=== PATIENT | female | born 1960 | race Caucasian/White ===

== ENCOUNTER 2019-12-22 16:20 | Outpatient (REF) | payer OTHER, SELFPAY | END 2019-12-22 16:21 | disposition home or self-care (01) | LOC: HO.LAB 16:20 | PROVIDERS: PCP Internal Medicine; Visit Provider Internal Medicine | DX: Z20.828 Contact with and (suspected) exposure to other viral communicable diseases (principal) | CPT/HCPCS: 87635 ==

== ENCOUNTER 2024-01-27 09:21 | Outpatient (AMB) | payer OTHER, SELFPAY ==
[2024-01-27 09:21] VITALS: BP 128/78; PULSE 48
--- NOTE | 2024-01-27 09:21 | A.OFFVIS_ITS ---
Vital Signs 01/27/24 09:21 Weight 217 lb 9.54 oz BP 128/78 Blood Pressure Location Rt brachial Position Sitting Pulse 48 L Pulse Source Pulse Oximeter Intake Visit Reasons: RA//RECORDS RECEIVED Intake Note: Patient present today for RA office visit. Sail Finisher Machine Required: No Accompanied by: Self / Same As Patient Allergies Penicillins Adverse Reaction (Unknown, Verified 01/27/24 09:26) skin rashes contrast dye Adverse Reaction (Unknown, Uncoded 01/27/24 09:26) Vomiting, severe headache mushrooms Adverse Reaction (Unknown, Uncoded 01/27/24 09:26) Diarrhea Medication List - Last Reconciled 01/27/24 by Hong Pacheco MD acetaminophen 1,000 mg PO Q6H PRN albuterol sulfate 90 mcg/actuation 1 inh inhalation QID amlodipine 10 mg PO DAILY cevimeline (Evoxac) 1 cap PO TID cholecalciferol (vitamin D3) 50 mcg PO DAILY diclofenac sodium 75 mg PO BID diphenhydramine HCl 50 mg IM Q6-8H PRN estradiol 0.01%(0.1mg/gram) 1 g vaginal QWEEK fluticasone furoate 100 mcg/actuation (Arnuity Ellipta) 1 inh inhalation DAILY hydrochlorothiazide 25 mg PO DAILY hydroxyzine pamoate 25 mg PO QID lorazepam 2 mg IV Q8M meclizine 12.5 mg PO TID PRN mirtazapine 15 mg PO BEDTIME omeprazole 20 mg PO DAILY ondansetron HCl 4 mg PO Q8H prednisolone acetate 1% 1 drp ophthalmic (eye) BID sumatriptan succinate 50 mg PO Q2-4H PRN valacyclovir 1,000 mg PO DAILY HPI Comments Details: Feels well. Denies any infections. She uses diclofenac 75mg PRN pain. Persistent synovitis right MCPs but no pain. [facility] Medical History (Updated 01/28/24 @ 14:06 by Hnog Pacheco MD) Sjogren syndrome Shoulder impingement Rheumatoid arthritis Marginal zone B-cell lymphoma Encounter for long-term current use of medication Carpal tunnel syndrome Bursitis, trochanteric Arthralgia of shoulder region Family History Mother Lung cancer Rheumatoid arthritis Father Heart disease Social History Alcohol intake: never Patient Tobacco Use Status: Never used Tobacco Review of Systems Const All systems reviewed & are unremarkable except as noted in HPI and below Physical Exam Vital Signs: Last Vital Signs Pulse 48 L 01/27/24 09:21 BP 128/78 01/27/24 09:21 Const General: healthy appearing and comfortable Resp Auscultation: clear to auscultation bilaterally Cardio Rate: regular rate Rhythm: regular rhythm Heart sounds: S1 normal heart sound present and S2 normal heart sound present Extrem Other: Chronic synovial thickening right 2-5th MCP. Non tender joints. She is able to make a fist. Good ROM UE. Knee flexion 100 degrees bilateral. Limited hip ROM. Assessment & Plan Assessment & Plan (1) Rheumatoid arthritis: Comment: Stable on Rituximab infusion (RTX). 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 She tolerated last infusion without infusion reaction. She received methylprednisolone instead of prednisone pretreatment. Hx mild transaminitis on RTX. Discussed having a regular exercise routine. AAOS knee strengthening program given to patient. Continue diclofenac 75mg BID RTC May 2024 Code(s): M06.9 - Rheumatoid arthritis, unspecified Category: Medical Plan: Continue RTX 500mg day 1 and 2 then day 14 and 15 infused over 5 hours with pretreatment 30 minutes before infusion (methyprednisolone, tylenol 650mg, 25mg benedryl IV, 1mg ativan IV) every 5 months. Labs for disease and drug monitoring due today (2) Other intermission coordinator (current) drug therapy: Comment: See above Code(s): Z79.899 - Other shelter (current) drug therapy Category: Medical Plan: See above (3) Sjogren syndrome: Comment: +SSA, NATALY 1:640, dry mouth is tolerable. Code(s): M35.00 - Sjogren syndrome, unspecified Category: Medical Plan: Monitor clinically Plan . Orders: Orders Alanine Aminotransferase 01/27/24 M06.9 - Rheumatoid arthritis, unspecified Aspartate Amino Transferase 01/27/24 M06.9 - Rheumatoid arthritis, unspecified C Reactive Protein 01/27/24 M06.9 - Rheumatoid arthritis, unspecified Creatinine 01/27/24 M06.9 - Rheumatoid arthritis, unspecified Erythrocyte Sedimentation Rate 01/27/24 M06.9 - Rheumatoid arthritis, unspecified T Spot TB 01/27/24 M06.9 - Rheumatoid arthritis, unspecified Complete Blood Count Auto Diff 01/27/24 M06.9 - Rheumatoid arthritis, unspecified Hepatitis B,C Profile 01/27/24 M06.9 - Rheumatoid arthritis, unspecified Medications: New diclofenac sodium 75 mg PO BID 60 tabs 2RF Coding Level of Care Code Est Pt Level 4 (37419) Complex EM visit Add On G2211 Diagnoses Rheumatoid arthritis M06.9 Other intermission coordinator (current) drug therapy Z79.899 Sjogren syndrome M35.00
== END 2024-01-27 10:05 | disposition home or self-care (01) ==
PROVIDERS: PCP Internal Medicine; Visit Provider Internal Medicine Rheumatology
DX: M06.9 Rheumatoid arthritis, unspecified (principal); Z79.899 Other long term (current) drug therapy; M35.00 Sjogren syndrome, unspecified
CPT/HCPCS: 99214; G2211

== ENCOUNTER → 2024-01-27 09:21 | Outpatient (BNVA) | payer OTHER, SELFPAY | PROVIDERS: PCP Internal Medicine; Visit Provider Internal Medicine Rheumatology | DX: M06.9 Rheumatoid arthritis, unspecified (principal); M65.98 Unspecified synovitis and tenosynovitis, other site; M35.00 Sjogren syndrome, unspecified; Z79.899 Other long term (current) drug therapy | CPT/HCPCS: 99212 ==

== ENCOUNTER 2024-01-27 10:27 | Outpatient (REF) | payer OTHER, SELFPAY ==
[2024-01-27 13:35] LABS: MANUAL DIFF FLAG NO
[2024-01-27 13:45] LABS: Basophils Percent Auto 0.4 % (0-2); Eosinophils Absolute Auto 0.2 X10*3/uL (0.0-0.4); Eosinophils Percent Auto 2.5 % (0-4); Hematocrit 42.3 % (37.0-47.0); Hemoglobin 14.1 g/dl (12.0-16.0); Imm Gran Abs Auto 0.01 X10*3/uL (0.00-0.03); Imm Gran Pct Auto 0.1 % (0.0-0.4); Lymphocytes Absolute Auto 1.7 X10*3/uL (1.2-4.9); Lymphocytes Percent Auto 25.1 % (20-40); Mean Corpuscular HGB Conc 33.3 g/dl (31.0-35.0); Mean Corpuscular Hemoglobin 31.8 pg (27.0-33.0); Mean Corpuscular Volume 95.3 fL (80.0-98.0); Mean Platelet Volume 10.7 fL (9.4-12.3); Monocytes Absolute Auto 0.5 X10*3/uL (0.1-1.2); Monocytes Percent Auto 6.6 % (2-11); Neutrophils Absolute Auto 4.5 x10*3/uL (2.0-8.3); Neutrophils Percent Auto 65.3 % (45-73); Platelet Count 257 X10*3/uL (160-400); Red Blood Count 4.44 X10*6/uL (4.20-5.50); Red Cell Distribution Width 11.7 % (11.0-16.0); White Blood Count 6.8 X10*3/uL (4.8-10.8)
[2024-01-27 13:57] LABS: Alanine Aminotransferase 90 U/L (0-31); Aspartate Amino Transferase 79 U/L (5-31); Estimated Glomerular Filt Rate > 60
[2024-01-27 14:16] LABS: Erythrocyte Sedimentation Rate 8 MM/HR (0-20)
[2024-01-28 08:14] LABS: HBS Num1 0.52 mIU/mL (0-7.99); HBc Num1 0.18 S/CO (0.00-0.79); HBsAGNum1 0.39 S/CO (0.00-0.99); Hepatitis B Core Antibody Nonreactive (Nonreactive); Hepatitis B Surface Antigen Negative (Negative); ~HepC Num1 0.08 S/CO (0.00-0.79); ~Hepatitis B Surface Antibody NONREACTIVE (Nonreactive); ~Hepatitis C Antibody Nonreactive (Nonreactive)
[2024-01-30 04:43] LABS: TS Negative Control Passed; TS Panel A 2; TS Panel B 3; TS Positive Control Passed; TSpotTB Negative (Negative)
== END 2024-01-27 10:28 | disposition home or self-care (01) ==
LOC: HO.10HDL 10:27
PROVIDERS: Visit Provider Internal Medicine Rheumatology
DX: M06.9 Rheumatoid arthritis, unspecified (principal)
CPT/HCPCS: 36415; 82565; 84450; 84460; 85025; 85652; 86140; 86481; 86704; 86706; 86803; 87340

== ENCOUNTER 2024-02-29 09:05 | Outpatient (REF) | payer OTHER, SELFPAY ==
[2024-02-29 11:10] LABS: Alanine Aminotransferase 75 U/L (0-31); Albumin Level 3.8 g/dL (3.5-5.0); Alkaline Phosphatase 96 U/L (39-117); Aspartate Amino Transferase 50 U/L (5-31); Bilirubin Direct 0.2 mg/dL (0.0-0.5); Bilirubin Total 0.7 mg/dL (0.0-1.0); Total Protein 6.9 g/dL (6.5-8.0)
== END 2024-02-29 09:06 | disposition home or self-care (01) ==
LOC: HO.10HDL 09:05
PROVIDERS: Visit Provider Internal Medicine Rheumatology
DX: R74.01 Elevation of levels of liver transaminase levels (principal); Z79.899 Other long term (current) drug therapy
CPT/HCPCS: 36415; 80076

== ENCOUNTER 2024-04-11 08:45 | Outpatient (REF) | payer OTHER, SELFPAY ==
--- NOTE | ~2024-04-11 | US_ITS ---
CLINICAL HISTORY: R74.01 - Elevation of levels of liver transaminase levels US abdomen limited Comparison: None Findings: Fatty infiltration of the liver without focal abnormality. Visualized pancreas unremarkable. Gallbladder unremarkable without stones or wall thickening. Common duct 7.4 mm diameter. No ultrasonographic [place] sign. Right kidney normal, 10.2 cm in length. Impression: Fatty infiltration of the liver Dilated common bile duct without other finding This document has been electronically signed by: Manfred Archuleta MD on 04/11/2024 19:24:15
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
== END 2024-04-11 08:46 | disposition home or self-care (01) ==
LOC: HO.HMGCX 08:45
PROVIDERS: PCP Internal Medicine; Visit Provider Internal Medicine Rheumatology
DX: R74.01 Elevation of levels of liver transaminase levels (principal)
CPT/HCPCS: 76705

== ENCOUNTER → 2024-04-11 08:47 | Outpatient (BNV) | payer OTHER, SELFPAY | PROVIDERS: PCP Internal Medicine; Visit Provider Radiology Diagnostic Radiology | DX: K76.0 Fatty (change of) liver, not elsewhere classified (principal) | CPT/HCPCS: 76705 ==

== ENCOUNTER 2024-06-13 13:31 | Outpatient (AMB) | payer OTHER, SELFPAY ==
--- NOTE | 2024-06-13 13:33 | MHC.OFFVIS ---
Vital Signs 06/13/24 13:34 Height 5 ft 3 in Weight 204 lb 12.951 oz BMI 36.3 BP 140/80 H Blood Pressure Location Lt brachial Position Sitting Pulse 113 H Pulse Source Pulse Oximeter Pulse Oximetry (%) 97 Oxygen Delivery Method Room Air Intake Visit Reasons: 4mo F/U Intake Note: Patient present today for RA office visit. Allergies Penicillins Adverse Reaction (Unknown, Verified 06/13/24 13:36) skin rashes contrast dye Adverse Reaction (Unknown, Uncoded 06/13/24 13:36) Vomiting, severe headache mushrooms Adverse Reaction (Unknown, Uncoded 06/13/24 13:36) Diarrhea HPI HPI 4mo F/U: Details: She was recently in the ER for asthma exacerbation. She completed 4 day course of prednisone. She noticed that the swelling in her right hand has decreased. No new joint symptoms. No recent infections. [facility] Medical History (Updated 06/13/24 @ 14:07 by Hong Pacheco MD) Sjogren syndrome Shoulder impingement Rheumatoid arthritis Marginal zone B-cell lymphoma Encounter for long-term current use of medication Carpal tunnel syndrome Bursitis, trochanteric Arthralgia of shoulder region Family History Mother Lung cancer Rheumatoid arthritis Father Heart disease Social History Alcohol intake: never Patient Tobacco Use Status: Never used Tobacco Physical Exam Vital Signs: Last Vital Signs Pulse 113 H 06/13/24 13:34 BP 140/80 H 06/13/24 13:34 Pulse Ox 97 06/13/24 13:34 Oxygen Delivery Method Room Air 06/13/24 13:34 BMI result Body Mass Index 36.3 Const Other: General: Comfortable CVS: RRR Respiratory: clear to auscultation bilaterally. Good respiratory effort Skin: No lesions seen MSK:Chronic synovial thickening right 2-5th MCP. Non tender joints. She is able to make a fist. Normal ROM UE. Knee flexion 110 degrees bilateral. Limited hip external rotation. Cardio Rate: regular rate Rhythm: regular rhythm Heart sounds: S1 normal heart sound present and S2 normal heart sound present Assessment & Plan Assessment & Plan (1) Rheumatoid arthritis: Comment: She has chronic synovial thickening of right 2nd and 3rd MCP. I am ordering x-ray to evaluate for erosive arthritis. She had benefit with recent course of prednisone in reducing synovitis. We discussed considering another course of prednisone versus intra-articular cortisone injections next visit. Rheumatology history: Stable on Rituximab infusion (RTX). 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 She tolerated last infusion without infusion reaction. She received methylprednisolone instead of prednisone pretreatment. Hx mild transaminitis on RTX. Hepatic steatosis on ultrasound 04/11/2024. Code(s): M06.9 - Rheumatoid arthritis, unspecified Category: Medical Plan: Continue RTX 500mg day 1 and 2 then day 14 and 15 infused over 5 hours with pretreatment 30 minutes before infusion (methyprednisolone, tylenol 650mg, 25mg benedryl IV, 1mg ativan IV) every 5 months. Labs for disease and drug monitoring due today Return to clinic in 3 months (2) Hepatic steatosis: Comment: Discussed diagnosis and management Code(s): K76.0 - Fatty (change of) liver, not elsewhere classified Category: Medical Plan: I recommend healthy eating and exercise. I recommend trying to lose weight. She will further discuss considering medications for weight loss with PCP Return to clinic in 3 months (3) Other continuous churn buttermaker (current) drug therapy: Code(s): Z79.899 - Other continuous churn buttermaker (current) drug therapy Category: Medical Plan: See above (4) Sjogren syndrome: Comment: +SSA, NATALY 1:640, dry mouth is tolerable. Code(s): M35.00 - Sjogren syndrome, unspecified Category: Medical Plan: Monitor clinically Plan See above Orders: Orders Alanine Aminotransferase Today Z79.60 - senior care (current) use of unspecified immunomodulators and immunosuppressants XR hand RT min 3V Today M06.9 - Rheumatoid arthritis, unspecified Complete Blood Count Auto Diff Today Z79.60 - vermin exterminator (current) use of unspecified immunomodulators and immunosuppressants Aspartate Amino Transferase Today Z79.60 - vermin exterminator (current) use of unspecified immunomodulators and immunosuppressants Creatinine Today Z79.60 - senior care (current) use of unspecified immunomodulators and immunosuppressants C Reactive Protein Today Z79.899 - Other penitentiary (current) drug therapy Erythrocyte Sedimentation Rate Today Z79.899 - Other continuous churn buttermaker (current) drug therapy XR hand LT min 3V Today M06.9 - Rheumatoid arthritis, unspecified Coding Level of Care Code Est Pt Level 4 (70435) Complex EM visit Add On G2211 Diagnoses Rheumatoid arthritis M06.9 Hepatic steatosis K76.0 Other penitentiary (current) drug therapy Z79.899 Sjogren syndrome M35.00
[2024-06-13 13:34] VITALS: BP 140/80; PULSE 113; O2SAT 97; BMI 36.3
--- OUTSIDE RECORDS SUMMARY | 2024-06-13 16:01 | XMS_ITS | Encounter Summary ---
Author Organization [facility] Address [address] [place] [address] Care Team Providers Care Bucket Turner Name Role Phone Laurie Landon MD Primary Care Provider [phone] Reason for Visit * Reason Comments Hypertension Follow-up Shortness of Breath X 1 day Chest Pain X 1 day Encounter Details Date Type Department Care Team ([facility] Contact Info) Description 06/08/2024 1:00 PM EDT Office Visit Adult Medicine [facility] [address], [place] [phone] Joseline Plascencia PA [address], [place] Chest pain, unspecified type (Primary Dx); Shortness of breath Social History Tobacco Use Types Packs/Day Years Used Date Smoking Tobacco: Never Smokeless Tobacco: Never Alcohol Use Standard Drinks/Week Comments Not Currently 0 (1 standard drink = 0.6 oz pur e alcohol) Comments Unknown Sex and Gender Information Value Date Recorded Sex Assigned at Not on file Legal Sex Female 5:36 AM EST Gender Identity Not on file Sexual Orientation Not on file documented as of this encounter Last Filed Vital Signs Vital Sign Reading Time Taken Comments Blood Pressure 138/80 06/08/2024 1:13 PM EDT Pulse 62 06/08/2024 1:13 PM EDT Temperature 36.3 ??C (97.4 ??F) 06/08/2024 1:13 PM ED T Respiratory Rate 16 06/08/2024 1:13 PM EDT Oxygen Saturation 98% 06/08/2024 1:13 PM EDT Inhaled Oxygen Concentration - - Weight 94.3 kg (208 lb) 06/08/2024 1:13 PM EDT Height 160 cm (5' 3 ) 06/08/2024 1:13 PM EDT Body Mass Index 36.85 06/08/2024 1:13 PM EDT documented in this encounter Progress Notes * DIEGO Lew - 06/08/2024 1:00 PM EDT CHIEF COMPLAINT: Hypertension, Follow-up, Shortness of Breath (X 1 day), and Chest Pain (X 1 day ) IDENTIFIER: Florence Blanco is a 64 y.o. old female. HPI: 64-year-old female presenting to office for routine evaluation. Upon arrival to the office, she reports she developed chest pain radiating to the back and shortness of breath this morning which has been persistent and worsening. Reports generally feeling ill. Reports ongoing stress, states she was in court yesterday regarding of her granddaughter. ROS: GENERAL: No fever, shaking chills RESPIRATORY: +shortness of breath CARDIOVASCULAR: +chest pain NEURO: No persistent headache, syncope, seizures PAST MEDICAL HISTORY: Patient Active Problem List Diagnosis Date Noted Asthma 02/15/2024 Severe obesity (BMI 35.0-35.9 with comorbidity) ([facility]) CKD (chronic kidney disease) stage 3, GFR 30-59 ml/min ([facility]) 05/21/2023 Migraine headache with aura 08/02/2020 Paresthesia of both lower extremities 05/31/2018 HSV-2 (herpes simplex virus 2) infection 05/12/2018 Steatohepatitis, nonalcoholic 01/05/2017 Seropositive rheumatoid arthritis of multiple sites ([facility]) 01/01/2016 Ureterolithiasis 05/18/2015 Vitamin D deficiency 12/31/2014 Post herpetic neuralgia 12/25/2013 HPV (human papilloma virus) infection 05/25/2013 Hypertensive disorder 12/28/2011 Sjogren's syndrome ([facility]) 01/30/2011 Depression 12/25/2009 Degeneration of lumbar intervertebral disc 05/03/2009 Thyroid nodule 08/29/2007 Rotator cuff tear 08/29/2007 Reflux esophagitis 03/01/2007 Malignant lymphomas of lymph nodes of multiple sites ([facility]) 09/30/2006 Hypothyroidism 06/30/2006 Leiomyoma of uterus 06/30/2006 Past Surgical History: Procedure Laterality Date BREAST BIOPSY Bilateral PROCEDURE: BX BREAST; PERC NEEDLE CORE W/IMAG GUID; COMMENT: both bx b9 BREAST LUMPECTOMY 04/16 PROCEDURE: ---- BREAST LUMP BIOPSY ----; COMMENT: fibroadenoma BREAST SURGERY Bilateral PROCEDURE: MS UNLISTED PROCEDURE BREAST HYSTERECTOMY 2007 PROCEDURE: HISTORICAL HYSTERECTOMY; COMMENT: Dr. Davila, fibroids, ovaries intact OTHER SURGICAL HISTORY PROCEDURE: MS HEMORRHOIDECTOMY XTRNL COLUMN/GROUP OTHER SURGICAL HISTORY 11/2017 PROCEDURE: MAMMOGRAM OTHER SURGICAL HISTORY PROCEDURE: MS RADIAL KERATOTOMY; COMMENT: left eye TUBAL LIGATION PROCEDURE: HISTORICAL TUBAL LIGATION SOCIAL HISTORY: Social History Tobacco Use Smoking status: Never Smokeless tobacco: Never Substance Use Topics Alcohol use: Not Currently FAMILY HISTORY: Family History Problem Relation Name Age of Onset Prostate cancer Other 55.00 maternal uncle and first cousin Hypertension Mother arthritis, lung cancer, liver disease, diabetes Heart attack Father 61.00 HTN Ovarian cancer Maternal Grandmother 60.00 Lymphoma Uncle maternal Dementia Maternal Grandfather 92.00 Cervical cancer Daughter 22.00 lupus Stroke Paternal Grandfather 65.00 Other (Other: bone cancer) Other 5.00 paternal second cousin Other (Other: lupus) Other 32.00 paternal first cousin once removed Lymphoma Uncle 70.00 maternal Other (Other: rectal cancer) Other 35.00 maternal first cousin Other (Other: ovarian cancer) Other 40.00 maternal first cousin Breast cancer Aunt maternal 70.00 unilateral Family Status Relation Name Status Other Alive Mother Alive Father MGM Uncle (Not Specified) MGF Daughter (Not Specified) PGF Other (Not Specified) Other (Not Specified) Uncle (Not Specified) Other (Not Specified) Other (Not Specified) Aunt maternal Alive PGM No partnership data on file MEDICATIONS DISCONTINUED/REORDERED: Medications Discontinued During This Encounter Medication Reason cycloSPORINE 0.05 % drops Duplicate order diclofenac (VOLTAREN) 75 mg EC tablet Duplicate order ACTIVE MEDICATIONS: Outpatient Medications Marked as Taking for the 06/08/24 encounter (Office Visit) with DIEGO Lew Medication Sig Dispense Refill albuterol 2.5 mg /3 mL (0.083 %) nebulizer solution Take 1 Vial by nebulization every 4 hours as needed for Wheezing or Shortness of Breath (EMERGENCY INHALER). albuterol sulfate (ProAir RespiClick) 90 mcg/actuation aerosol powdr breath activated Inhale 2 Puffs into the lungs every 6 hours as needed (Coughing, wheezing, shortness of breath). budesonide-formoteroL (SYMBICORT) 160-4.5 mcg/actuation inhaler Inhale 1 Puff into the lungs 2 times daily. cholecalciferol (VITAMIN D-3) 50 mcg (2,000 unit) capsule TAKE 1 CAPSULE BY MOUTH EVERY DAY diclofenac (CATAFLAM) 50 mg tablet TAKE 1 TABLET ORALLY 2 TIMES A DAY REPLACE DICLOFENAC 75MG TWICEA DAY. TAKE WITH FOOD. estradioL (ESTRACE) 0.01 % (0.1 mg/gram) vaginal cream Insert 0.5 g into the vagina 2 (two) times aweek. 45 g 1 ferrous sulfate 325 mg (65 mg iron) EC tablet Take by mouth. qod lisinopriL (PRINIVIL,ZESTRIL) 10 mg tablet Take 1 Tablet by mouth daily. omeprazole (PriLOSEC) [address] capsule TAKE 1 CAPSULE BY MOUTH ONCE A DAY WHILE YOU ARE ON DICLOFENAC OR PREDNISONE TO PROTECT YOUR STOMACH 90 capsule 3 Restasis 0.05 % ophthalmic emulsion Administer 1 drop into both eyes 2 (two) times a day. SUMAtriptan (IMITREX) 50 mg tablet TAKE 1 TABLET BY MOUTH DAILY NEEDED FOR MIGRAINE (MAY REPEAT ONCE WITHIN 2 HRS (MAX: 100MG PER 24 HRS)). 9 tablet 2 triamcinolone (KENALOG) 0.025 % cream APPLY SPARINGLY TO AFFECTED AREA TWICE DAILY valACYclovir (VALTREX) 1 gram tablet Take 1 tablet (1,000 mg total) by mouth 1 (one) time each day. ALLERGIES: Allergies Allergen Reactions Hydroxychloroquine Sulfate Abnormal eye exam after being on it for a year Penicillins Other Reaction(s): Rash/Dermatitis Iodinated Contrast Media Other Reaction(s): Hives/Urticaria Pt had vomiting and rash UNSPECIFIED Contrast Media - PHS Allergy Remediation PHYSICAL EXAM: Visit Vitals BP 138/80 Pulse 62 Temp 36.3 ??C (97.4 ??F) (Temporal) Resp 16 Ht 1.6 m (63 ) Wt 94.3 kg (208 lb) SpO2 98% BMI 36.85 kg/m?? Smoking Status Never BSA 1.97 m?? Wt Readings from Last 5 Encounters: 06/08/24 94.3 kg (208 lb) 04/25/24 97.3 kg (214 lb 6.4 oz) 12/07/23 97.7 kg (215 lb 8 oz) 08/06/23 95.7 kg (211 lb) 05/20/23 94.8 kg (209 lb) BMI is greater than 25.0 (above the normal range) - see Plan APPEARANCE: Alert, severely obese, and in no acute distress HEART: RRR with normal S1 and S2, no murmurs, no gallops CHEST: Diffuse chest wall tenderness to palpation LUNG: Bilateral lung taylor clear to auscultation throughout EKG: Sinus bradycardia, rate 57, no suggestion of ischemia. Similar when compared to EKG dated 08/26/07. Reviewed with Dr. Landon. LABS: No orders of the defined types were placed in this encounter. IMAGING: None IMPRESSION: 1. Chest pain, unspecified type 2. Shortness of breath PLAN: 64-year-old female who reports developing sudden onset chest pain, radiating to the back, along with shortness of breath this morning which is persisted and seems to be worsening. EKG is performed and reviewed without ischemic change. However, given risk factors including hypertension, severe obesity, and family history of cardiovascular disease - patient referred to ER for further ACS protocol. Report baby aspirin to be chewed and swallowed in the presence of the nurse; cardiac monitoring established. 911 is called, patient wishes to be evaluated at [facility]. Medication and lab orders: No orders of the defined types were placed in this encounter. Other orders: None DIEGO Lew on 06/08/2024 at 1:39 PM EDT * Karla Membreno RN - 06/08/2024 1:00 PM EDT Pt received in exam room # 7. Pt able to ambulate from the exam room to the holding unit independently. She was administered 4 baby ASA at 1:35 pm and was instructed to chew them then swallow. She states she cannot talk as she is too short of breath. Pt hooked up to the youth nutritional monitor and vital cart in the holding unit. 911 called at 1:40 pm. Her VS as of 1:43 pm are as follows: 155/72, 63, 100% RA and 32. She states her inhaler is in her car. Paramedics arrived to the holding uni at 1:49 pm and transported pt to [facility] ER. documented in this encounter Plan of Treatment Upcoming Encounters Date Type Department Care Team (Late st Contact Info) Description 10/12/2024 2:10 PM EDT Appointment Radiology Department - [address] [phone] documented as of this encounter Visit Diagnoses Diagnosis Chest pain, unspecified type- Primary Shortness of breath documented in this encounter Discontinued Medications Medication Sig Discontinue Reason Start Date End Da te cycloSPORINE 0.05 % drops Place 1 Drop into both eyes 2 times daily. Duplicate order 03/06/2015 06/08/2024 diclofenac (VOLTAREN) 75 mg EC tablet TAKE 1 TABLET BY MOUTH TWICE A DAY WITH FOOD Duplicate order 05/07/2022 06/08/2024 documented as of this encounter Historical Medications * This list may reflect changes made after this encounter. Restasis 0.05 % ophthalmic emulsion Administer 1 drop into both eyes 2 (two) times a day. 04/29/2024 diclofenac (CATAFLAM) 50 mg tablet TAKE 1 TABLET ORALLY 2 TIMES A DAY REPLACE DICLOFENAC 75MG TWICE A DAY. TAKE WITH FOOD. 05/10/2024 valACYclovir (VALTREX) 1 gram tablet Take 1 tablet (1,000 mg total) by mouth 1 (one) time each day. 04/21/2024 added in this encounter Care Teams Bucket Turner Relationship Specialty Start Date End Date Laurie Landon MD [address] [place] [address] PCP - General 07/28/02 documented as of this encounter
--- OUTSIDE RECORDS SUMMARY | 2024-06-13 16:01 | XMS_ITS | Encounter Summary ---
Author Organization [facility] Address [address] [place] [address] Care Team Providers Care Estimate Clerk Name Role Phone Laurie Landon MD Primary Care Provider [phone] Encounter Details Date Type Department Care Team (Late Contact Info) Description 06/08/2024 Telephone Adult Medicine [address] [phone] Karla Membreno RN Social History Tobacco Use Types Packs/Day Years [...] on file documented as of this encounter Plan of Treatment Upcoming Encounters Date Type Department Care Team (Late Contact Info) Description 10/12/2024 2:10 PM EDT Appointment Radiology Department - [address] [phone] documented as of this encounter Visit Diagnoses Not on filedocumented in this encounter Care Teams Estimate Clerk Relationship Specialty Start Date End Date Laurie Landon MD [address] [place] [address] PCP - General 07/28/02 documented as of this encounter
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
== END 2024-06-13 14:02 | disposition home or self-care (01) ==
LOC: HO.RHES 13:32
PROVIDERS: PCP Internal Medicine; Visit Provider Internal Medicine Rheumatology
DX: M06.9 Rheumatoid arthritis, unspecified (principal); K76.0 Fatty (change of) liver, not elsewhere classified; Z79.899 Other long term (current) drug therapy; M35.00 Sjogren syndrome, unspecified
CPT/HCPCS: 99214; G2211

== ENCOUNTER 2024-06-13 13:31 | Outpatient (REF) | payer OTHER, SELFPAY ==
--- OUTSIDE RECORDS SUMMARY | 2024-06-13 16:50 | XMS_ITS | Encounter Summary ---
Author Organization [facility] Address [address] [place] [address] Care Team Providers Care Emergency Medicine Physician Name Role Phone Laurie Landon MD Primary Care Provider [phone] Reason for Visit * Reason Comments Hypertension Follow-up Shortness of Breath X 1 day Chest Pain X 1 day Encounter Details Date Type Department Care Team ([facility] Contact Info) Description 06/08/2024 1:00 PM EDT Office Visit Adult Medicine [facility] [address] [place], [place] [phone] Joseline Plascencia PA [address] [place], [place] Chest pain, unspecified type (Primary Dx); [...] 02/15/2024 Severe obesity (BMI 35.0-35.9 with comorbidity) ([facility]) CKD (chronic kidney disease) stage 3, GFR 30-59 ml/min ([facility]) 05/21/2023 Migraine headache with aura 08/02/2020 Paresthesia of both lower extremities 05/31/2018 HSV-2 (herpes simplex virus 2) infection 05/12/2018 Steatohepatitis, nonalcoholic 01/05/2017 Seropositive rheumatoid arthritis of multiple sites ([facility]) 01/01/2016 Ureterolithiasis 05/18/2015 Vitamin D deficiency 12/31/2014 Post herpetic neuralgia 12/25/2013 HPV (human papilloma virus) infection 05/25/2013 Hypertensive disorder 12/28/2011 Sjogren's syndrome ([facility]) 01/30/2011 Depression 12/25/2009 Degeneration of lumbar intervertebral disc 05/03/2009 Thyroid nodule 08/29/2007 Rotator cuff tear 08/29/2007 Reflux esophagitis 03/01/2007 Malignant lymphomas of lymph nodes of multiple sites ([facility]) 09/30/2006 Hypothyroidism 06/30/2006 Leiomyoma of uterus 06/30/2006 Past Surgical History: Procedure Laterality Date BREAST BIOPSY Bilateral PROCEDURE: BX BREAST; PERC NEEDLE CORE W/IMAG GUID; COMMENT: both bx b9 BREAST LUMPECTOMY 04/16 PROCEDURE: ---- BREAST LUMP BIOPSY ----; COMMENT: fibroadenoma BREAST SURGERY Bilateral PROCEDURE: [place] UNLISTED PROCEDURE BREAST HYSTERECTOMY 2007 PROCEDURE: HISTORICAL HYSTERECTOMY; COMMENT: Dr. Davila, fibroids, ovaries intact OTHER SURGICAL HISTORY PROCEDURE: [place] HEMORRHOIDECTOMY XTRNL COLUMN/GROUP OTHER SURGICAL HISTORY 11/2017 PROCEDURE: MAMMOGRAM OTHER SURGICAL HISTORY PROCEDURE: [place] RADIAL KERATOTOMY; COMMENT: left eye TUBAL LIGATION [...] called, patient wishes to be evaluated at [facility]. Medication and lab orders: No orders [...] of breath. Pt hooked up to the case monitor and vital cart in the holding unit. 911 called at 1:40 pm. Her VS as of 1:43 pm are as follows: 155/72, 63, 100% RA and 32. She states her inhaler is in her car. Paramedics arrived to the holding uni at 1:49 pm and transported pt to [facility]. documented in this encounter Plan of Treatment Upcoming Encounters Date Type Department Care Team (Late st Contact Info) Description 10/12/2024 2:10 PM EDT Appointment Radiology Department - [address] [phone] documented as of this encounter Visit Diagnoses [...] 04/21/2024 added in this encounter Care Teams Emergency Medicine Physician Relationship Specialty Start Date End Date Laurie Landon MD [address] [place] [address] PCP - General 07/28/02 documented as of this encounter
--- OUTSIDE RECORDS SUMMARY | 2024-06-13 16:51 | XMS_ITS | Encounter Summary ---
Author Organization [facility] Address [address] [place] [address] Care Team Providers Care Generation Technician Name Role Phone Laurie Landon MD Primary Care Provider [phone] Encounter Details Date Type Department Care Team (Late Contact Info) Description 06/08/2024 Telephone Adult Medicine [address] [phone] Karla Membreno RN Social History Tobacco Use [...] 2:10 PM EDT Appointment Radiology Department - [address] [phone] documented as of this encounter Visit Diagnoses Not on filedocumented in this encounter Care Teams Generation Technician Relationship Specialty Start Date End Date Laurie Landon MD [address] [place] [address] PCP - General 07/28/02 documented as of this encounter
--- OUTSIDE RECORDS SUMMARY | 2024-06-13 16:51 | XMS_ITS | Clinical Summary ---
Author Organization [address] Address [address] [place] [phone] Phone Care Team Providers Care Docket Specialist Name Role Phone Laurie Landon MD Primary Care Provider [phone] Allergies Active Allergy Reactions Criticality Noted Date [...] SS-B MALT lymphoma, parotid. Received Rituxamab at [facility]. Hydroxychloroquine stopped after one year - questionable [...] 1:00 PM EDT Office Visit Adult Medicine [address] [phone] Joseline Plascencia PA Chest pain, unspecified type (Primary Dx); Shortness of breath 06/08/2024 Telephone Adult Medicine [address] [phone] Karla Membreno RN 04/28/2024 Telephone Obstetrics and Gynecology [place] [address] [place] [address] Laverne Lilly CNM Labs Only 04/25/2024 8:45 AM EST Office Visit Obstetrics and Gynecology - [place] [address] [place] [address] Laverne Lilly CNM Women's annual routine gynecological examination (Primary Dx); Screen for STD (sexually transmitted disease); Hypertension, unspecified type from Last 3 Months Immunizations Name Administration Dates Next Due H1N1 Inj Preservative Free 02/22/2009 Hepatitis B (Shabvya-X-Dvwcg , Recombivax HB-Adult) 19yo and older 04/07/2017,09/30/2016,09/03/2016 [...] ----; COMMENT: fibroadenoma OTHER SURGICAL HISTORY PROCEDURE: MO HEMORRHOIDECTOMY XTRNL COLUMN/GROUP OTHER SURGICAL HISTORY 11/2017 PROCEDURE: MAMMOGRAM TUBAL LIGATION PROCEDURE: HISTORICAL TUBAL LIGATION OTHER SURGICAL HISTORY PROCEDURE: MO RADIAL KERATOTOMY; COMMENT: left eye HYSTERECTOMY 2007 PROCEDURE: HISTORICAL HYSTERECTOMY; COMMENT: Dr. Davila, fibroids, ovaries intact BREAST BIOPSY Bilateral PROCEDURE: BX BREAST; PERC NEEDLE CORE W/IMAG GUID; COMMENT: both bx b9 BREAST SURGERY Bilateral PROCEDURE: MO UNLISTED PROCEDURE BREAST Medical History Medical History Date Comments Headache(784.0) DX:Headache(784. 0) Asymptomatic varicose veins DX:A symptomatic varicose veins Leiomyoma of uterus, unspecified 06/30/2006 DX:Leiomyoma of uterus, unspecified Texline's syndrome DX:Chai's syndrome (HCC) Other malignant lymphomas [...] 10/12/2024 2:10 PM EDT Appointment Radiology Department [address] [address] Health Maintenance Due Date Last Done Comments [...] LAB MICROBIOLOGY METHOD 05/01/2024 2:04 PM EST [facility] Brushing/Spatula Cervix uteri structure / Unknown 05/01/2024 7:49 AM EST 05/01/2024 7:49 AM EST Laverne BELLA LAB MOLECULAR DIAGNOSTICS O RDERABLES Final Result [facility] [address] [place] [address], * Pap smear (04/25/2024 10:09 AM EST) Interpretation Negative for intraepithelial lesion or malignancy 04/27/2024 2:36 PM EST [facility] General Categorization Negative 04/27/2024 2:36 PM EST [facility] Specimen Adequacy Satisfactory for evaluation, endocervical/wilburn sformation zone component absent 04/27/2024 2:36 PM [facility] Pap Methodology Liquid Based Pap Test 04/27/2024 2:36 PM [facility] Disclaimer The Pap test is a screening test which carries an inherent false negative rate. These test results should be correlated with the patient's clinical findings and history. This Pap test was processed using an automated screening system. Technical cytopathology services provided by [facility], at [address] [place] [id number] (CLIA # [id number]/John Rosales MD, Arc Air Operator.) 04/27/2024 2:36 PM [facility] Console Pap Interpretation Reported 04/27/2024 2:36 PM [facility] Brushing/Spatula Cervix uteri structure / Unknown 04/25/2024 10:09 AM EST 04/25/2024 10:09 AM EST us [facility] CYTOLOGY ORDERABLES Fin al Result [facility] [address] [place] [address], [place] [phone] * Hepatitis C antibody (04/25/2024 9:29 AM EST) Hepatitis C Antibody Negative Negative LAB CHEMISTRY METHOD 04/25/2024 12:43 PM EST [facility] Blood Venous blood specimen / Unknown Venipuncture / Unknown 04/25/2024 9:29 AM EST 04/25/2024 9:29 AM EST us Laverne Lilly [facility] BLOOD ORDERABLES Final Result [facility] [address] [place] [address], [place] [phone] * HIV 1,2 antibody, p24 antigen with reflex to differentiation (04/25/2024 9:29 AM EST) HIV Combo AB/AG Negative Negative LAB CHEMISTRY METHOD 04/25/2024 12:43 PM EST [facility] Blood Venous blood specimen / Unknown Venipuncture / Unknown 04/25/2024 9:29 AM EST 04/25/2024 9:29 AM EST Narrative [facility] - 04/25/2024 12:43 PM EST This assay is a 4th generation assay allowing for earlier detection of HIV infection by detecting the presence of the HIV-1 p24 antigen as well as the traditional antibodies to HIV type 1 (including group O) and type 2. ??Use of a 4th generation assay is the current CDC recommendation for HIV screening. us Laverne Lilly [facility] BLOOD ORDERABLES Final Result Performing Organization Address City/[facility]/ZIP Co de Phone Number [facility] [address] [place] [address], [place] [phone] * Treponema pallidum antibody with reflex to RPR and particle agglutination (04/25/2024 9:29 AM EST) Pathologist [facility] T. Pallidum Antibodies Negative Negative LAB CHEMISTRY METHOD 04/25/2024 12:17 PM EST [facility] Blood Venous blood specimen / Unknown Venipuncture / Unknown 04/25/2024 9:29 AM EST 04/25/2024 9:29 AM EST us Laverne Lilly [facility] BLOOD ORDERABLES Final Result [facility] [address] [place] [address], [place] [phone] * SCREENING MAMMOGRAPHY BI 2-VIEW BREAST INC [...] Final Resul t * Depression Screening (05/20/2023) [facility] Depression Screening abstracted Historical Provider HEALTH MAINTENANCE Final Result * Annual BMP Blood Test (02/18/2023) [facility] Annual BMP Blood Test abstracted Historical Provider HEALTH MAINTENANCE Final Result * FIT-DNA (Cologuard) (11/19/2022) [facility] Colorectal Cancer Screening: FIT-DNA (Cologuard) no [...] Most Recently Relevant to Health Maintenance Insurance [facility] [place] [address] Care Teams Docket Specialist Relationship Specialty Start Date End Date Laurie Landon MD [address] [place] [id number] PCP - General 07/28/02
[2024-06-13 18:13] LABS: MANUAL DIFF FLAG NO
[2024-06-13 18:56] LABS: Alanine Aminotransferase 90 U/L (0-31); Aspartate Amino Transferase 76 U/L (5-31); C Reactive Protein 2.25 mg/dL (< or = 0.50); Estimated Glomerular Filt Rate 56
[2024-06-13 19:02] LABS: Basophils Percent Auto 0.3 % (0-2); Eosinophils Absolute Auto 0.3 X10*3/uL (0.0-0.4); Eosinophils Percent Auto 3.6 % (0-4); Hematocrit 46.2 % (37.0-47.0); Hemoglobin 15.7 g/dl (12.0-16.0); Imm Gran Abs Auto 0.02 X10*3/uL (0.00-0.03); Imm Gran Pct Auto 0.2 % (0.0-0.4); Lymphocytes Absolute Auto 1.9 X10*3/uL (1.2-4.9); Lymphocytes Percent Auto 20.7 % (20-40); Mean Corpuscular Hemoglobin 31.9 pg (27.0-33.0); Mean Corpuscular Volume 93.9 fL (80.0-98.0); Mean Platelet Volume 11.2 fL (9.4-12.3); Monocytes Absolute Auto 0.6 X10*3/uL (0.1-1.2); Monocytes Percent Auto 6.3 % (2-11); Neutrophils Absolute Auto 6.3 x10*3/uL (2.0-8.3); Neutrophils Percent Auto 68.9 % (45-73); Platelet Count 340 X10*3/uL (160-400); Red Blood Count 4.92 X10*6/uL (4.20-5.50); Red Cell Distribution Width 12.1 % (11.0-16.0); White Blood Count 9.2 X10*3/uL (4.8-10.8)
[2024-06-13 19:33] LABS: Erythrocyte Sedimentation Rate 13 MM/HR (0-20)
== END 2024-06-13 13:32 | disposition home or self-care (01) ==
LOC: HO.HKASLDS 13:31
PROVIDERS: PCP Internal Medicine; Visit Provider Internal Medicine Rheumatology
DX: Z79.899 Other long term (current) drug therapy (principal); Z79.60 Long term (current) use of unspecified immunomodulators and immunosuppressants; M06.9 Rheumatoid arthritis, unspecified; M35.00 Sjogren syndrome, unspecified; K76.0 Fatty (change of) liver, not elsewhere classified
CPT/HCPCS: 36415; 82565; 84450; 84460; 85025; 85652; 86140; 99212

== ENCOUNTER 2024-09-26 13:01 | Outpatient (AMB) | payer OTHER, SELFPAY ==
--- NOTE | 2024-09-26 13:04 | MHC.OFFVIS ---
Vital Signs 09/26/24 13:07 Height 5 ft 3 in Weight 208 lb BMI 36.8 BP 130/70 Blood Pressure Location Lt brachial Position Sitting Pulse 95 Pulse Source Pulse Oximeter Pulse Oximetry (%) 98 Oxygen Delivery Method Room Air Intake Visit Reasons: 3 Months Intake Note: Patient present today for RA office visit. Allergies Penicillins Adverse Reaction (Unknown, Verified 09/26/24 13:07) skin rashes contrast dye Adverse Reaction (Unknown, Uncoded 06/13/24 13:36) Vomiting, severe headache mushrooms Adverse Reaction (Unknown, Uncoded 06/13/24 13:36) Diarrhea HPI HPI 3 Months: Details: She is doing well. No recent flares. She continues to have swelling in her right hand. [facility] Medical History (Updated 09/26/24 @ 15:44 by Hong Pacheco MD) Sjogren syndrome Shoulder impingement Rheumatoid arthritis Marginal zone B-cell lymphoma Encounter for long-term current use of medication Carpal tunnel syndrome Bursitis, trochanteric Arthralgia of shoulder region Family History Mother Lung cancer Rheumatoid arthritis Father Heart disease Social History Alcohol intake: never Patient Tobacco Use Status: Never used Tobacco Physical Exam Vital Signs: Last Vital Signs Pulse 95 09/26/24 13:07 BP 130/70 09/26/24 13:07 Pulse Ox 98 09/26/24 13:07 Oxygen Delivery Method Room Air 09/26/24 13:07 BMI result Body Mass Index 36.8 Const Other: General: Comfortable CVS: RRR Respiratory: clear to auscultation bilaterally. Good respiratory effort Skin: No lesions seen MSK:Chronic synovial thickening right 2-3rd MCP. Non tender joints. She is able to make a fist. Normal ROM UE. Valgus deformity right knee. Knee flexion 110 degrees bilateral. Limited hip external rotation. Office Procedures AMB Joint Injection/Aspiration Joint Injection/Aspiration Details: Right 2nd MCP Prep: site was prepped using aseptic technique Injected: 10 mg of, Kenalog, with 0.25 mL of and 1% plain lidocaine Procedure: Informed verbal consent was obtained. The patient tolerated the procedure well. Postprocedure protocol was discussed with patient. Right PIP Coding - Small Joint Procedure code (CPT) selection complete Office Meds lidocaine (PF) 10 mg/mL (1 %) injection solution Performing Provider: Hong Pacheco MD Performing Location: [facility] Administered by: Hong Pacheco MD on 09/26/24 13:36 Dose Route Admin Location Dispensed Lot Number Expiration Date [facility] Moving Picture Operator 2.5 mg Infiltration 2 mL [id number] 08/12/26 46863-160-81 [employer] Total Dispensed Waste 2 mL 87.5 % Kenalog 40 mg/mL suspension for injection Performing Provider: Hong Pacheco MD Performing Location: [facility] Administered by: Hong Pacheco MD on 09/26/24 13:36 Dose Route Admin Location Dispensed Lot Number Expiration Date [facility] Moving Picture Operator 10 mg intra-articular 1 mL [id number] 10/12/25 [address]-0 [employer] Total Dispensed Waste 1 mL 75 % Assessment & Plan Assessment & Plan (1) Rheumatoid arthritis: Comment: She has persistent chronic synovial thickening of right 2nd and 3rd MCP. I am ordering x-ray to evaluate for erosive inflammatory arthritis. She had benefit with course of prednisone in reducing synovitis. She agreed to try right 2nd MCP cortisone injection. Rheumatology history: Stable on Rituximab infusion (RTX). 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 She tolerated last infusion without infusion reaction. She received methylprednisolone instead of prednisone pretreatment. Hx mild transaminitis on RTX. Hepatic steatosis on ultrasound 04/11/2024. Code(s): M06.9 - Rheumatoid arthritis, unspecified Category: Medical Plan: Continue RTX 500mg day 1 and 2 then day 14 and 15 infused over 5 hours with pretreatment 30 minutes before infusion (methyprednisolone, tylenol 650mg, 25mg benedryl IV, 1mg ativan IV) every 5 months. Labs for disease and drug monitoring due today X-ray bilateral hands ordered to evaluate for erosive inflammatory arthritis Patient received right 2nd MCP cortisone injection this visit Return to clinic in 3 months (2) Other jail (current) drug therapy: Code(s): Z79.899 - Other intermodal dispatcher (current) drug therapy Category: Medical Plan: See above (3) Hepatic steatosis: Comment: Contributing to transaminitis Code(s): K76.0 - Fatty (change of) liver, not elsewhere classified Category: Medical Plan: Monitoring LFTs while on rituximab She is working with PCP for weight loss. Weight loss medication was denied. She has been referred to weight loss clinic at [facility]. (4) Sjogren syndrome: Comment: +SSA, NATALY 1:640, dry mouth is tolerable. Code(s): M35.00 - Sjogren syndrome, unspecified Category: Medical Qualifiers: Sjogren organ or system involvement: keratoconjunctivitis Qualified Code(s): M35.01 - Sjogren syndrome with keratoconjunctivitis Plan: Monitor clinically Plan See above Orders: Orders Alanine Aminotransferase Today M06.9 - Rheumatoid arthritis, unspecified, Z79.899 - Other intermodal dispatcher (current) drug therapy Aspartate Amino Transferase Today M06.9 - Rheumatoid arthritis, unspecified, Z79.899 - Other intermodal dispatcher (current) drug therapy AMB Joint Injection/Aspiration Today M06.9 - Rheumatoid arthritis, unspecified Complete Blood Count Man Dif Today M06.9 - Rheumatoid arthritis, unspecified, Z79.899 - Other jail (current) drug therapy Creatinine Today M06.9 - Rheumatoid arthritis, unspecified, Z79.899 - Other intermodal dispatcher (current) drug therapy C Reactive Protein Today M06.9 - Rheumatoid arthritis, unspecified, Z79.899 - Other jail (current) drug therapy Erythrocyte Sedimentation Rate Today M06.9 - Rheumatoid arthritis, unspecified, Z79.899 - Other jail (current) drug therapy Coding Level of Care Code Est Pt Level 4 (46399) Complex EM visit Add On G2211 Diagnoses Rheumatoid arthritis M06.9 Other intermodal dispatcher (current) drug therapy Z79.899 Hepatic steatosis K76.0 Sjogren's syndrome with keratoconjunctivitis sicca M35.01 Sjogren organ or system involvement: keratoconjunctivitis CPT Codes Coding - - Small joint: 52978 - Small Joint ([id number])
[2024-09-26 13:07] VITALS: BP 130/70; PULSE 95; O2SAT 98; BMI 36.8
--- OUTSIDE RECORDS SUMMARY | 2024-09-26 14:17 | XMS_ITS | Encounter Summary ---
Author Organization [facility] Address [address] [place] [address] Care Team Providers Care Ethylbenzene Converter Operator Name Role Phone Laurie Landon MD Primary Care Provider [phone] Reason for Visit * Reason Onset Date Comments PT 1 09/19/2024 Encounter Details Date Type Department Care Team (Late st Contact Info) Description 09/19/2024 Telephone Adult Medicine [facility] [place] [facility] [address] [place] [address] Laurie Landon MD [address] [place] [address] PT 1 Social History Tobacco Use Types Packs/Day Years [...] on file documented as of this encounter Progress Notes * Yaritza Singh LPN - 09/21/2024 7:48 AM EDT PT 1 form submitted Rafaela Yanez 6 visits yearly Tracking # [id number] * Laverne Peoples - 09/19/2024 1:31 PM EDT PT-1 Request Call [facility] new provider or submitter number is [id number] Verify and document patients [place] Health insurance ID # (NOT [facility] ID): [id number] Payor: [employer] / Plan: [employer] MEDICAID / Product Type: *No Product type* / Patient mailing address: [address] [place] [phone] (home) [phone] (work) Pt. demographics verified? yes If not accurate, update registration. Is this a NEW request or a RENEWAL? Renewal Name of treating facility: [facility] Name (first & last) of treating provider? required : CELESTINA IRVIN MD What is the medical reason why the patient is seeing the above provider? CANCER Address/Zip code for treating provider: [address] [place] [address] Phone # for treating provider: [phone] Is the provider in the [facility] [employer] network (do they accept [place] Health insurance)? yes What specialtly is this provider? ONCOLOGIST When is the visit scheduled for? 02/15/2025 How often you will be seeing this particular provider? 2 X A YEAR Do you have friends or family who can transport you to this visit? no If yes, do not complete request. Is there anything stopping you from using public transportation? If yes, explain: yes Is there a medical reason (diagnosis) why you are unable to use public transportation? If yes, explain: Yes,CAN'T WALK Does patient carry self-administered oxygen? no Does patient require door through door or room to room service( ex: member cannot ambulate or wait independently outside their home/facility for transportation. no Is this is for an Adult Day Program or Suboxone clinic No If yes to above what is arrival time N/A and what is departure time N/A If yes to above how many days a week? N/A Do you need a wheelchair van? no If you use a wheelchair what is the height, width & length of the wheelchair? NO Do you need an escort to accompany you? If yes, explain why. no Will you have an alternative pick-up address? no Do you have a service animal? no PT DOES NOT NEED RELEASE OF INFORMATION SIGNED documented in this encounter Plan of Treatment Upcoming Encounters Date Type Department Care Team (Late st Contact Info) Description 10/12/2024 2:10 PM EDT Appointment Radiology Department - [address] [phone] 12/25/2024 1:15 PM EDT Office Visit Adult Medicine [address] [phone] Laurie Landon MD [address] [place] [address] documented as of this encounter Visit Diagnoses Not on filedocumented in this encounter Care Teams Ethylbenzene Converter Operator Relationship Specialty Start Date End Date Laurie Landon MD [address] [place] [address] PCP - General 07/28/02 documented as of this encounter
== END 2024-09-26 13:44 | disposition home or self-care (01) ==
PROVIDERS: PCP Internal Medicine; Visit Provider Internal Medicine Rheumatology
DX: M06.09 Rheumatoid arthritis without rheumatoid factor, multiple sites (principal); M35.01 Sjogren syndrome with keratoconjunctivitis; M15.4 Erosive (osteo)arthritis; K76.0 Fatty (change of) liver, not elsewhere classified; Z79.899 Other long term (current) drug therapy
CPT/HCPCS: 20600; 99214

== ENCOUNTER → 2024-09-26 13:01 | Outpatient (BNVA) | payer OTHER, SELFPAY | PROVIDERS: PCP Internal Medicine; Visit Provider Internal Medicine Rheumatology | DX: M35.01 Sjogren syndrome with keratoconjunctivitis (principal); M06.9 Rheumatoid arthritis, unspecified; K76.0 Fatty (change of) liver, not elsewhere classified; Z79.899 Other long term (current) drug therapy | CPT/HCPCS: 20600; 99212; J2003; J3300 ==

== ENCOUNTER 2025-02-13 09:39 | Outpatient (REF) | payer OTHER, SELFPAY ==
--- OUTSIDE RECORDS SUMMARY | 2025-02-13 10:40 | XMS_ITS ---
[facility] Name [facility] Care Team Organization Name Specialty Phone Email Start Date End Da te [facility] Laurie Landon Primary Care 01/20/2022 4
--- OUTSIDE RECORDS SUMMARY | 2025-02-13 10:40 | XMS_ITS | Clinical Summary ---
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 02/06/2025 10:33 AM EST [facility] Blood Venous blood specimen / Unknown Venipuncture / Unknown 02/06/2025 7:37 AM EST 02/06/2025 7:37 AM EST us Mindi Dobson MD LAB BLOOD ORDERABLES Fi nal Result Performing Organization Address City/[facility]/ZIP Co de Phone Number [facility] [address] [place] [address], [place] [phone] * Cortisol (02/06/2025 7:37 AM EST) [facility] Cortisol 10.5 mcg/dL 02/06/2025 10:28 AM EST [facility] Blood Venous blood specimen / Unknown Venipuncture / Unknown 02/06/2025 7:37 AM EST 02/06/2025 7:37 AM EST Narrative [facility] - 02/06/2025 10:28 AM EST CORTISOL REFERENCE RANGE 8 AM SPEC: 5.0-23.0 mcg/dL 4 PM SPEC: 3.0-16.0 mcg/dL 8 PM SPEC: <5.0 mcg/dL us Mindi Dobson MD LAB BLOOD ORDERABLES Fi nal Result [facility] [address] [place] [address], [place] [phone] * (ABNORMAL) Comprehensive metabolic panel (02/06/2025 7:37 AM EST) [facility] Sodium 142 133 - 145 mmol/L 02/06/2025 10:39 AM EST [facility] Potassium 4.4 3.5 - 5.5 mmol/L 02/06/2025 10:39 AM [facility] Chloride 103 96 - 110 mmol/L 02/06/2025 10:39 AM [facility] CO2 32 21 - 32 mmol/L 02/06/2025 10:39 AM [facility] Anion Gap 7 3 - 11 02/06/2025 10:39 AM [facility] Glucose 105(H) 70 - 100 mg/dL 02/06/2025 10:39 AM [facility] BUN 18 5 - 25 mg/dL 02/06/2025 10:39 AM [facility] Creatinine 1.01 0.50 - 1.10 mg/dL 02/06/2025 10:39 AM [facility] eGFR 63 >=60 mL/min/1. 73m2 02/06/2025 10:39 AM [facility] Comment:Calculation based on the Chronic Kidney Disease Epidemiology Collaboration (CKD-EPI) equation refit without adjustment for race. BUN/Creatinine Ratio 17.8 02/06/2025 10:39 AM [facility] Calcium 8.9 8.5 - 10.5 mg/dL 02/06/2025 10:39 AM [facility] AST (SGOT) 85(H) 10 - 42 unit/L 02/06/2025 10:39 AM [facility] ALT (SGPT) 107(H) 10 - 60 unit/L 02/06/2025 10:39 AM [facility] Alkaline Phosphatase 105 42 - 121 unit/L 02/06/2025 10:39 AM [facility] Total Protein 6.5 6.0 - 8.0 g/dL 02/06/2025 10:39 AM [facility] Albumin 3.9 3.2 - 5.0 g/dL 02/06/2025 10:39 AM EST [facility] Total Bilirubin 0.7 0.0 - 1.4 mg/dL 02/06/2025 10:39 AM EST [facility] Blood Venous blood specimen / Unknown Venipuncture / Unknown 02/06/2025 7:37 AM EST 02/06/2025 7:37 AM EST Mindi Dobson MD LAB BLOOD ORDERABLES Fi nal Result [facility] [address] [place] [address], [place] [phone] * HPV with reflex genotype (05/01/2024 7:49 AM EST) HPV Negative Negative LAB MICROBIOLOGY METHOD 05/01/2024 2:04 PM EST [facility] Brushing/Spatula Cervix uteri structure / Unknown 05/01/2024 7:49 AM EST 05/01/2024 7:49 AM EST us Laverne BELLA LAB MOLECULAR DIAGNOSTICS O RDERABLES Final Result Performing Organization Address City/[facility]/ZIP Co de Phone Number [facility] [address] [place] [address], [place] [phone] * Hepatitis C antibody (04/25/2024 9:29 AM EST) Hepatitis C Antibody Negative Negative LAB CHEMISTRY METHOD 04/25/2024 12:43 PM EST [facility] Blood Venous blood specimen / Unknown Venipuncture / Unknown 04/25/2024 9:29 AM EST 04/25/2024 9:29 AM EST us Laverne Lilly CNM LAB BLOOD ORDERABLES Final Result [facility] [address] [place] [address], [place] [phone] * HIV 1,2 antibody, p24 antigen with reflex to differentiation (04/25/2024 9:29 AM EST) HIV Combo AB/AG Negative Negative LAB CHEMISTRY METHOD 04/25/2024 12:43 PM EST [facility] Blood Venous blood specimen / Unknown Venipuncture / Unknown 04/25/2024 9:29 AM EST 04/25/2024 9:29 AM EST Narrative [facility] - 04/25/2024 12:43 PM EST This assay is a 4th generation assay allowing for earlier detection of HIV infection by detecting the presence of the HIV-1 p24 antigen as well as the traditional antibodies to HIV type 1 (including group O) and type 2. Use of a 4th generation assay is the current CDC recommendation for HIV screening. Laverne Lilly [facility] BLOOD ORDERABLES Final Result [facility] [address] [place] [address], * SCREENING MAMMOGRAPHY BI 2-VIEW BREAST INC [...] are composed of fatty and fibroglandular tissue. No suspicious mass, architectural distortion or suspicious calcifications are identified. IMPRESSION: : No mammographic evidence of malignancy. BIRADS 1-Negative; N. 5 year breast cancer risk assessment 1.2 % Lifetime breast cancer risk assessment 5.7 % Breast cancer risk category Low (<15%) Procedure Note Rokhlenko, Anika, MD - 11/01/2023 This is a summary [...] Final Resul t * Depression Screening (05/20/2023) Depression Screening abstracted Historical Provider MD HEALTH MAINTENANCE Final Result from Last 3 Months or Most Recently Relevant to Health Maintenance Insurance [facility] Care Teams Mica Builder Relationship Specialty Start Date End Date Laurie Landon MD [address] [place] [phone] PCP - General 07/28/02
--- OUTSIDE RECORDS SUMMARY | 2025-02-13 10:40 | XMS_ITS | Encounter Summary ---
Author Organization [facility] Address [address] [place] [address] Phone Care Team Providers Care Waiter/Waitress Room Service Name Role Phone Laurie Landon MD Primary Care Provider [phone] Ruben Farooq MD Unavailable [phone] Vidal Sena MD Unavailable Hong Pacheco MD Unavailable [phone] Reason for Visit * Reason Comments Medication Refill Encounter Details Date Type Department Care Team (Late Contact Info) Description 11/14/2021 [facility]ill [facility], Division of Hematologic Oncology, [address], [address] [place] [address] Chris Narvaez MD, PhD [address] [place] [phone] [email or web address] Medication Refill Social History Tobacco Use Types Packs/Day Years Used Date Smoking Tobacco: Never Comments Unknown Sex and Gender Information Value Date Recorded Sex Assigned at Not on file Legal Sex Female 6:24 PM EST Gender Identity Not on file Sexual Orientation Not on file documented as of this encounter Plan of Treatment Upcoming Encounters Date Type Department Care Team (Late Contact Info) Description 02/16/2025 12:40 PM EST Blood Draw Laboratory Services, [address], [address] [place] [address] [place] Tanner, SOUND ART INSTRUCTOR [address] [place] [phone] [email or web address] Chris Narvaez MD, PhD [address] [place] [phone] [email or web address] 02/16/2025 1:30 PM EST Office Visit [facility], Division of Hematologic Oncology, [address], [address] [place] [address] [place] Tanner, SOUND ART INSTRUCTOR [address] [place] [phone] [email or web address] Chris Narvaez MD, PhD [address] [place] [phone] [email or web address] documented as of this encounter Visit Diagnoses Not on filedocumented in this encounter Care Teams Waiter/Waitress Room Service Relationship Specialty Start Date End Date Laurie Landon MD [address] [place] [phone] PCP - General 07/19/14 Ruben Farooq MD [address] [place] [phone] @[email or web address] Referring Physician Hematology 06/10/15 Vidal Sena MD [address] [place] [address] [email or web address] Rheumatology 01/26/19 Hong Pacheco MD [address] [place] [address] Internal Medicine 05/08/21 documented as of this encounter Additional Source Comments The information contained in this document represents components of the legal health record. It is not the complete legal health record.[facility]
--- OUTSIDE RECORDS SUMMARY | 2025-02-13 10:40 | XMS_ITS | Encounter Summary ---
Author Organization [facility] Address [address] [place] [address] Phone Care Team Providers Care Diabetes Trainer Name Role Phone Laurie Landon MD Primary Care Provider [phone] Ruben Farooq MD Unavailable [phone] Vidal Sena MD Unavailable Hong Pacheco MD Unavailable [phone] Reason for Visit * Reason Comments Medication Refill Encounter Details Date Type Department Care Team (Late Contact Info) Description 10/17/2020 Refill [facility], Division of Hematologic Oncology, [address], [address] [place] [address] Chris Narvaez MD, PhD [address] [place] [phone] [email or web address] Medication Refill Social History Tobacco Use Types [...] 12:40 PM EST Blood Draw Laboratory Services, [address], 2nd [place] [address] [place] Tanner, FERRY BOAT CAPTAIN [address] [place] [phone] [email or web address] Chris Narvaez MD, PhD [address] [place] [phone] [email or web address] 02/16/2025 1:30 PM EST Office Visit [facility], Division of Hematologic Oncology, [address], [address] [place] [address] [place] Tanner, FERRY BOAT CAPTAIN [address] [place] [phone] [email or web address] Chris Narvaez MD, PhD [address] [place] [phone] [email or web address] documented as of this encounter Visit Diagnoses Not on filedocumented in this encounter Care Teams Diabetes Trainer Relationship Specialty Start Date End Date Laurie Landon MD [address] [place] [address] PCP - General 07/19/14 Ruben Farooq MD [address] [place] [phone] @[email or web address] Referring Physician Hematology 06/10/15 Vidal Sena MD [address] [place] [phone] [email or web address] 01/26/19 Hong Pacheco MD [address] [place] [phone] Internal Medicine 05/08/21 documented as of this encounter Additional Source Comments The information contained in this document represents components of the legal health record. It is not the complete legal health record.[facility]
--- OUTSIDE RECORDS SUMMARY | 2025-02-13 10:41 | XMS_ITS | Clinical Summary ---
Author Organization [facility] Address [address] [place] [address] Phone Care Team Providers Care Timber Trimmer Name Role Phone Laurie Landon MD Primary Care Provider [phone] Ruben Farooq MD Unavailable Vidal Sena MD Unavailable Hong Pacheco MD Unavailable Allergies Active Allergy Reactions Criticality Noted Date Comments Hydroxychloroquine Other (See Comments) 09/01/2010 ? eye toxicity Iodinated Contrast Media 12/24/2010 UNSPECIFIED Contrast Media - [facility] Allergy Remediation Medications amitriptyline (ELAVIL) 25 MG tablet Take 25 mg by mouth nightly. 01/04/2012 Active saliva substitution combo no.9 (BIOTENE PBF) Mwsh Take 15 mL by mouth 4 (four) times a day. 03/18/2009 Active mirtazapine (REMERON) 15 MG tablet Take 7.5 mg by mouth nightly. 01/06/2011 Active esomeprazole (NEXIUM) 40 MG capsule Take 40 mg by mouth daily. 06/27/2008 Active pilocarpine (SALAGEN) 5 MG tablet Take 5 mg by mouth 3 (three) times a day. 12/28/2011 Active carboxymethylcell ulose (REFRESH PLUS) 0.5 % Dpet Apply 1 drop to eye 4 (four) times a day. 06/27/2008 Active metoclopramide HCl (REGLAN) 10 MG tablet Take 10 mg by mouth 3 (three) times a day before meals. 06/27/2008 Active cycloSPORINE (RESTASIS) 0.05 % suspension Place 1 drop into each eye 2 (two) times a day. 07/10/2013 Active cholecalciferol, vitamin D3, 1,000 unit capsule Take 1,000 Units by mouth daily. 12/28/2011 Active albuterol (PROVENTIL HFA;VENTOLIN HFA) 90 mcg/actuation inhaler Inhale 2 puffs into the lungs every 6 (six) hours as needed for wheezing. 01/30/2015 Active budesonide-formot becka (SYMBICORT) 80-4.5 mcg/actuation inhaler Inhale 2 puffs into the lungs 2 (two) times a day. 01/26/2019 Active amLODIPine (NORVASC) 10 MG tablet Take 1 tablet (10 mg total) by mouth daily. 90 tablet 3 11/11/2020 Active diclofenac sodium (VOLTAREN XR) 100 mg 24 hr tablet Take 1 tablet (100 mg total) by mouth 2 (two) times a day. 05/08/2021 Active hydroCHLOROthiazi de (HYDRODIURIL) 25 MG tablet Take 1 tablet (25 mg total) by mouth daily. 90 tablet 3 02/18/2023 Active lisinopril (PRINIVIL,ZESTRIL ) 5 MG tablet Take 1 tablet (5 mg total) by mouth daily. 90 tablet 3 02/18/2023 Active predniSONE (DELTASONE) 50 MG tablet Take 1 tablet (50 mg total) by mouth daily with breakfast. 5 tablet 02/17/2024 Active Active Problems Patient Care Coordination No te Formatting of this note migh t be different from the original. Flu vaccine 01/26/19 Problem Noted Date Diagnosed Date History of lymphoma 01/26/2019 Hypertensive disorder 12/28/2011 Overview (05/05/2014): Hypertensive disorder Hypothyroidism 12/28/2011 Overview (05/05/2014): Hypothyroidism Sicca syndrome 09/01/2010 Overview (05/05/2014): Sj gren's syndrome Malignant lymphoma 09/01/2010 Overview (05/05/2014): Lymphoma (clinical); malt Immunizations Immunization Administration Dates Next Due [id number] FORMULATION 02/22/2009 INFLUENZA, SPLIT VIRUS, TRIVALENT PF 01/09/2013, 12/28/2011 Influenza High-Dose Trivalen t Preservative Free IM 01/26/2019 Influenza Quadrivalent Preservative Free IM 01/13,01/21/2015,02/06/2014 Influenza, Unspecified Formulation 12/24/2010 Pneumococcal conjugate PCV13 01/27/2018 Pneumococcal polysaccharide PPSV23 07/28/2018, Zoster recombinant 10/26/2019 Social History Tobacco Use Types Packs/Day Years Used Date Smoking Tobacco: Never Education Answer Date Recorded Are you interested in more education? Not on mya e 07/19/2022 Are you concerned about learning? Not on file 07/19/2022 No 07/19/2022 No 07/19/2022 Digital Access Answer Date Recorded No 08/08/2022 No 08/08/2022 No 08/08/2022 Reliable internet access at home? Not on file 08/08/2022 Device with a working camera? Not on file Comments Unknown Sex and Gender Information Value Date Recorded Sex Assigned at Not on file Legal Sex Female 6:24 PM EST Gender Identity Not on file Sexual Orientation Not on file Last Filed Vital Signs Vital Sign Reading Time Taken Comments Blood Pressure 145/75 02/17/2024 8:44 AM EST Pulse 60 02/17/2024 8:44 AM EST Temperature 36.6 C (97.8 F) 02/17/2024 8:44 AM EST Respiratory Rate 16 02/17/2024 8:44 AM EST Oxygen Saturation 98% 02/17/2024 8:44 AM EST Inhaled Oxygen Concentration - - Weight 97.5 kg (214 lb 15.2 oz) 02/17/2024 8:44 AM EST Height 158.6 cm (5' 2.44 ) 02/17/2024 8:44 AM ES T Body Mass Index 38.76 02/17/2024 8:44 AM EST Plan of Treatment Upcoming Encounters Date Type Department Care Team (Late st Contact Info) Description 02/16/2025 12:40 PM EST Blood Draw Laboratory Services, [facility] [address]nd [place] [address] [place] Tanner, HOLLOW CORE DOOR FRAME ASSEMBLER [address] [place] [phone] [email or web address] Chris Narvaez MD, PhD [address] [place] [phone] [email or web address] 02/16/2025 1:30 PM EST Office Visit [facility], Division of Hematologic Oncology, [address] [place] [address] [place] Tannre, HOLLOW CORE DOOR FRAME ASSEMBLER [address] [place] [phone] [email or web address] Chris Narvaez MD, PhD [address] [place] [phone] [email or web address] Health Maintenance Due Date Last Done Comments DEPRESSION SCREENING 1973 SMOKING Hx and SMOKELESS TOBACCO SCREENING 1974 HIV ONE-TIME SCREENING (18-65 YEARS) 1979 PAP SMEAR 1982 MAMMOGRAM 2001 COLOGUARD 2006 COLONOSCOPY 2006 COLORECTAL CANCER SCREENING 2006 FIT TEST 2006 FOBT 2006 SIGMOIDOSCOPY 2006 VIRTUAL COLONOSCOPY 2006 PNEUMOCOCCAL VACCINES (50+ years) (4 of 4 - PCV20 or PCV21) 07/29/2023 07/28/2018, 01/27/2018, 09/02/2007, Additional history exists BLOOD PRESSURE 08/17/2024 02/17/2024 INFLUENZA VACCINE (#1) 2024 , 11/19/2022, 01/30/2022, Additional history exists COVID-19 VACCINE ( season) 2024 12/07/2022, 03/03/2022, 12/16/2020, Additional history exists CREATININE LEVEL 02/16/2025 02/17/2024, 09/2022, 08/13/2022, Additional history exists POTASSIUM LEVEL 02/16/2025 02/17/2024, 09/2022, 08/13/2022, Additional history exists SCREENING FOR DIABETES 02/16/2027 02/17/2024, 2022 LIPID PANEL 08/14/2027 08/13/2022, 03/2022, 01/26/2019 Adult Td,Tdap Booster 11/19/2032 11/19/2022 , 02/16/2012, 10/30/2002 RSV VACCINE (1 - 1-dose 75+ series) 02/21/2036 HEPATITIS C SCREENING Completed 07/28/2018 , 07/28/2018, 07/28/2018, Additional history exists ZOSTER VACCINES Completed 06/21/2020, 10/26/2019 HEPATITIS A VACCINES Aged Out No long er eligible based on patient's age to complete this topic HIB VACCINES Aged Out No longer eligi ble based on patient's age to complete this topic MENINGOCOCCAL VACCINES (ACWY) Aged Out No longer eligible based on patient's age to complete this topic MENINGOCOCCAL VACCINES (B) Aged Out N o longer eligible based on patient's age to complete this topic Medical Devices Not on file Procedures Procedure Name Priority Date/Time Associated Diagnosis Comments COMPREHENSIVE METABOLIC PANEL (CMP) Routine 02/17/2024 8:33 AM EST History of lymphoma LIPID PANEL Routine 08/13/2022 10:16 AM EDT History of lymphoma HEPATITIS C ANTIBODY WITH REFLEX TO HCV, RNA QUANTITATIVE REAL-TIME PCR Routine 07/28/2018 8:22 AM EDT from Last 3 Months or Most Recently Relevant to Health Maintenance Results * (ABNORMAL) Comprehensive metabolic panel (02/17/2024 8:33 AM EST) SODIUM 141 136 - 145 mmol/L [facility] LIC# [id number] POTASSIUM 4.5 3.4 - 5.1 mmol/L [facility] LIC# [id number] CHLORIDE 106 98 - 107 mmol/L [facility] LIC# [id number] CO2 25 22 - 31 mmol/L [facility] LIC# [id number] BUN 22 6 - 23 mg/dL [facility] LIC# [id number] CREATININE 0.93 0.50 - 1.20 mg/dL [facility] LIC# [id number] GLUCOSE 109(H) 70 - 100 mg/dL [facility] LIC# [id number] ALBUMIN 4.0 3.5 - 5.2 g/dL [facility] LIC# [id number] TOTAL PROTEIN 7.0 6.4 - 8.3 g/dL [facility] LIC# [id number] CALCIUM 9.4 8.8 - 10.7 mg/dL [facility] LIC# [id number] ALKALINE PHOSPHATASE 110(H) 35 - 104 U/L [facility] LIC# [id number] TOTAL BILIRUBIN 0.3 0.2 - 1.2 mg/dL [facility] LIC# [id number] AST 35(H) <33 U/L [facility] LIC# [id number] ALT 44(H) <34 U/L [facility] LIC# [id number] GLOBULIN 3.0 2.3 - 4.2 g/dL [facility] LIC# [id number] EGFR 70 >59 mL/min/1.7 3m2 [facility] LIC# [id number] Comment:Estimated glomerular filtration rate calculated using the CKD-EPI refit equation. ANION GAP 10 7 - 17 mmol/L [facility] LIC# [id number] Blood 02/17/2024 8:33 AM EST 02/17/2024 8:38 AM EST us Chris Narvaez MD, PhD LAB BLOOD BKR ORDERABLES Final Result [facility] LIC# [id number] [address] [place] [address] * (ABNORMAL) Lipid panel (08/13/2022 10:16 AM EDT) CHOLESTEROL 131 <200 mg/dL [facility] LIC# [id number] TRIGLYCERIDES 83 35 - 150 mg/dL [facility] LIC# [id number] HDL 36(L) 40 - 80 mg/dL [facility] LIC# [id number] CALCULATED LDL 78 50 - 129 mg/dL [facility] LIC# [id number] VLDL 17 <31 mg/dL [facility] LIC# [id number] CARDIAC RISK RATIO 3.6 0.0 - 5.0 [facility] LIC# [id number] Blood 08/13/2022 10:1 6 AM EDT 08/13/2022 10:19 AM EDT Chris Narvaez MD, PhD LAB BLOOD BKR ORDERABLES Final Result Performing Organization Address City/[facility]/ZIP Co de Phone Number [facility] LIC# [id number] [address] [place] [address] * Hepatitis C Antibody with Reflex to HCV, RNA quantitative Real-Time PCR (07/28/2018 8:22 AM EDT) Pathologist [facility] HCV Ab Negative Negative [facility] Comment: (NOTE) Cnymaz-bc-dhbyiw ratio is <1.00. 07/28/2018 8:22 AM EDT 07/28/2018 8:27 AM EDT us Chris Narvaez MD, PhD LAB BLOOD BKR ORDERABLES Final Result [facility] [address] [place] [address] from Last 3 Months or Most Recently Relevant to Health Maintenance Insurance [facility] [employer] [place] [address] [place] [address] [place] [address] [place] [address] [employer] [address] [place] [address]ENSE [employer] [place] [address] [place] [address] [employer] [place] [place] [address] [place] [address] [employer] Care Teams Timber Trimmer Relationship Specialty Start Date End Date Laurie Landon MD [address] [place] [address] PCP - General 07/19/14 Ruben Farooq MD [address] [place] [address] @[employer] Referring Physician Hematology 06/10/15 Vidal Sena MD [address] [place] [phone] [email or web address] 01/26/19 Hong Pacheco MD [address] [place] [address] Internal Medicine 05/08/21 Additional Source Comments The information contained in this document represents components of the legal health record. It is not the complete legal health record.[facility]
--- OUTSIDE RECORDS SUMMARY | 2025-02-13 10:41 | XMS_ITS | Encounter Summary ---
Author Organization [facility] Address [address] [place] [address] Phone Care Team Providers Care Home Health Specialist Name Role Phone Laurie Landon MD Primary Care Provider [phone] Ruben Farooq MD Unavailable [phone] Vidal Sena MD Unavailable Hong Pacheco MD Unavailable [phone] Reason for Visit * Reason Comments Medication Refill Encounter Details Date Type Department Care Team (Late Contact Info) Description 02/29/2020 Refill [facility], Division of Hematologic Oncology, [address], 7th [place] [address] Chris Narvaez MD, PhD [address] [place] [phone] [email or web address] Medication Refill Social History Tobacco Use Types [...] 12:40 PM EST Blood Draw Laboratory Services, [address], 2nd [place] [address] Warren Tanner, ROTATING EQUIPMENT SPECIALIST [address] [place] [address] [email or web address] Chris Narvaez MD, PhD [address] [place] [address] 322[address] [email or web address] 02/16/2025 1:30 PM EST Office Visit [facility], Division of Hematologic Oncology, [address], 7th [place] [address] Warren Tanner, CATERINA [address] [place] [address] 16[address] [email or web address] Chris Narvaez MD, PhD [address] [place] [address] [email or web address] documented as of this encounter Visit Diagnoses Not on filedocumented in this encounter Care Teams Home Health Specialist Relationship Specialty Start Date End Date Laurie Landon MD [address] [place] [address] PCP - General 07/19/14 Ruben Farooq MD [address] [place] [phone] @[email or web address] Referring Physician Hematology 06/10/15 Vidal Sena MD [address] [place] [address] [email or web address] 01/26/19 Hong Pacheco MD [address] [place] [address] 04200 Internal Medicine 05/08/21 documented as of this encounter Additional Source Comments The information contained in this document represents components of the legal health record. It is not the complete legal health record.[facility]
--- OUTSIDE RECORDS SUMMARY | 2025-02-13 10:41 | XMS_ITS | Encounter Summary ---
Author Organization [facility] Address [address] [place] [address] Phone Care Team Providers Care Wet Mixer Name Role Phone Laurie Landon MD Primary Care Provider [phone] Ruben Farooq MD Unavailable [phone] Vidal Sena MD Unavailable Hong Pacheco MD Unavailable [phone] Encounter Details Date Type Department Care Team (Late Contact Info) Description 07/28/2018 Ancillary Orders Division of Hematologic Oncology, [address], 8th [place] [address] Chris Narvaez MD, PhD [address] [place] [address] [email or web address] Marginal zone B-cell lymphoma Social History Tobacco Use Types Packs/Day Years [...] 12:40 PM EST Blood Draw Laboratory Services, [address], 2nd [place] [address] Warren Tanner, RELISH MAKER [address] [place] [address] [email or web address] Chris Narvaez MD, PhD [address] [place] [address] 280[address] [email or web address] 02/16/2025 1:30 PM EST Office Visit [facility], Division of Hematologic Oncology, [address], [address]th [place] [address] Warren Tanner, [address] [address] [email or web address] Chris Narvaez MD, PhD [address] [place] [address] 409[address] [email or web address] documented as of this encounter Results * US Abdomen Complete (07/28/2018 9:45 AM EDT) Anatomical Region Laterality Modality Abdomen Ultrasound 07/28/2018 Narrative 07/28/2018 9:46 AM EDT TESTS PERFORMED Abdominal Ultrasound complete (25680) Liver elastography INDICATIONS/REASONS FOR TESTS Abnormal liver function tests History of B-cell lymphoma FINDINGS Liver Increased echogenicity consistent with fatty infiltration Elastography Value (kPa) 5.5 Minimal risk of fibrosis (<7 kPa) Gallbladder Normal, no stones Biliary tree Common bile duct Normal Intrahepatic ducts Normal Right kidney Normal, no hydronephrosis Left kidney Normal, no hydronephrosis Pancreas Limited visualization due to overlying bowel gas Normal: body, head Not visualized: tail Spleen Normal Aorta Proximal Normal Mid Normal Distal Normal Inferior vena cava Normal intrahepatic portion IMPRESSION: Fatty infiltration of the liver with minimal risk of fibrosis Procedure Note Arabella East MD - 07/28/2018 TESTS PERFORMED Abdominal Ultrasound complete (91770) Liver elastography INDICATIONS/REASONS FOR TESTS Abnormal liver function tests History of B-cell lymphoma FINDINGS Liver Increased echogenicity consistent with fatty infiltration Elastography Value (kPa) 5.5 Minimal risk of fibrosis (<7 kPa) Gallbladder Normal, no stones Biliary tree Common bile duct Normal Intrahepatic ducts Normal Right kidney Normal, no hydronephrosis Left kidney Normal, no hydronephrosis Pancreas Limited visualization due to overlying bowel gas Normal: body, head Not visualized: tail Spleen Normal Aorta Proximal Normal Mid Normal Distal Normal Inferior vena cava Normal intrahepatic portion IMPRESSION: Fatty infiltration of the liver with minimal risk of fibrosis us Chris Narvaez MD, PhD IMG US ABDOMEN Final Re sult documented in this encounter Visit Diagnoses Diagnosis 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 documented in this encounter Care Teams Wet Mixer Relationship Specialty Start Date End Date Laurie Landon MD [address] [place] [address] PCP - General 07/19/14 Ruben Farooq MD [address] [place] [phone] @[employer] Referring Physician Hematology 06/10/15 Vidal Sena MD [address] [place] [address] 6[address] [email or web address] Rheumatology 01/26/19 Hong Pacheco MD [address] [place] [address] [phone] Internal Medicine 05/08/21 documented as of this encounter Additional Source Comments The information contained in this document represents components of the legal health record. It is not the complete legal health record.[facility]
[2025-02-13 13:39] LABS: Baso%MD 0.4 %; Eos%MD 1.8 %; Hematocrit 43.3 % (37.0-47.0); Hemoglobin 14.6 g/dl (12.0-16.0); IG%MD 0.3 %; Lymph%MD 25.2 %; Mean Corpuscular HGB Conc 33.7 g/dl (31.0-35.0); Mean Corpuscular Hemoglobin 32.5 pg (27.0-33.0); Mean Corpuscular Volume 96.4 fL (80.0-98.0); Mono%MD 8.5 %; NRBC Abs Auto 0.000 X10*3/uL (0.0-0.012); NRBC Pct Auto 0.0 /100WBC (0.0-0.2); Neut%MD 63.8 %; Platelet Count 289 X10*3/uL (160-400); Red Blood Count 4.49 X10*6/uL (4.20-5.50); White Blood Count 7.1 X10*3/uL (4.8-10.8)
[2025-02-13 13:58] LABS: Alanine Aminotransferase 112 U/L (0-31); Aspartate Amino Transferase 93 U/L (5-31); Estimated Glomerular Filt Rate 58
[2025-02-13 14:37] LABS: Eosinophils Absolute Manual 0.1 X10*3/uL (0.0-0.4); Eosinophils Percent Manual 2 % (0-4); Lymphocytes Absolute Manual 1.6 X10*3/uL (1.2-4.9); Lymphocytes Percent Manual 23 % (20-40)
[2025-02-13 14:38] LABS: Monocytes Absolute Manual 0.4 X10*3/uL (0.1-1.2); Monocytes Percent Manual 5 % (2-11); Neutrophils Percent Manual 70 % (45-73)
[2025-02-13 14:39] LABS: RBC Morphology NORMAL
[2025-02-13 14:41] LABS: Band Neutrophils Percent 0 % (3-5); Neutrophils Absolute Manual 5.0 X10*3/uL (2.0-8.3)
== END 2025-02-13 09:40 | disposition home or self-care (01) ==
LOC: HO.HKASLDS 09:39
PROVIDERS: PCP Internal Medicine; Visit Provider Internal Medicine Rheumatology
DX: M32.9 Systemic lupus erythematosus, unspecified (principal); M35.00 Sjogren syndrome, unspecified
CPT/HCPCS: 36415; 82565; 84450; 84460; 85007; 85027; 85652; 86140

== ENCOUNTER 2025-02-14 12:52 | Outpatient (AMB) | payer OTHER, SELFPAY ==
[2025-02-14 12:57] VITALS: BP 122/84; PULSE 66; O2SAT 95; BMI 37.7
--- NOTE | 2025-02-14 12:57 | MHC.OFFVIS ---
Vital Signs 02/14/25 12:57 Height 5 ft 3 in Weight 212 lb 15.465 oz BMI 37.7 BP 122/84 Blood Pressure Location Rt brachial Position Sitting Pulse 66 Pulse Source Pulse Oximeter Pulse Oximetry (%) 95 Oxygen Delivery Method Room Air Intake Visit Reasons: 3 months Intake Note: Patient present today for RA office visit. Accompanied by: Self / Same As Patient Allergies Penicillins Adverse Reaction (Unknown, Verified 02/14/25 12:57) skin rashes contrast dye Adverse Reaction (Unknown, Uncoded 06/13/24 13:36) Vomiting, severe headache mushrooms Adverse Reaction (Unknown, Uncoded 06/13/24 13:36) Diarrhea HPI HPI 3 months: Details: MS none Cortisone injection was helpful. No recent infection. [facility] Medical History Sjogren syndrome Shoulder impingement Rheumatoid arthritis Marginal zone B-cell lymphoma Encounter for long-term current use of medication Carpal tunnel syndrome Bursitis, trochanteric Arthralgia of shoulder region Family History Mother Lung cancer Rheumatoid arthritis Father Heart disease Social History Alcohol intake: never Patient Tobacco Use Status: Never used Tobacco Physical Exam Vital Signs: Last Vital Signs Pulse 66 02/14/25 12:57 BP 122/84 02/14/25 12:57 Pulse Ox 95 02/14/25 12:57 Oxygen Delivery Method Room Air 02/14/25 12:57 BMI result Body Mass Index 37.7 Const Other: General: Comfortable CVS: RRR Respiratory: clear to auscultation bilaterally. Good respiratory effort Skin: No lesions seen MSK:Chronic synovial thickening right 2nd MCP. Non tender joints. She is able to make a fist. Normal ROM UE. Valgus deformity right knee. Knee flexion 110 degrees bilateral. Limited hip external rotation. Assessment & Plan Assessment & Plan (1) Rheumatoid arthritis: Comment: Improvement of synovitis in right hand. She has transaminitis that is up trending. She started Mounjaro 1st dose on Wednesday. Mounjaro is associated with hepatic toxicity post marketing. She also has hepatic steatosis. There is no contraindication to having rituximab. Rheumatology history: Stable on Rituximab infusion (RTX). 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 She tolerated last infusion without infusion reaction. She received methylprednisolone instead of prednisone pretreatment. Hx mild transaminitis on RTX. Hepatic steatosis on ultrasound 04/11/2024. Code(s): M06.9 - Rheumatoid arthritis, unspecified Category: Medical Plan: Continue RTX 500mg day 1 and 2 then day 14 and 15 infused over 5 hours with pretreatment 30 minutes before infusion (methyprednisolone, tylenol 650mg, 25mg benedryl IV, 1mg ativan IV) every 5 months. Labs for disease and drug monitoring up-to-date. I am rechecking LFTs in 2 weeks. I have asked patient to hold Mounjaro. If LFTs do not improve, I will order liver ultrasound with elastography and GI referral X-ray bilateral hands ordered to evaluate for erosive inflammatory arthritis Return to clinic in 3 months (2) Other care home (current) drug therapy: Code(s): Z79.899 - Other care home (current) drug therapy Category: Medical Plan: See above (3) Hepatic steatosis: Comment: Contributing to transaminitis Code(s): K76.0 - Fatty (change of) liver, not elsewhere classified Category: Medical Plan: See above (4) Sjogren syndrome: Comment: +SSA, NATALY 1:640, dry mouth is tolerable. Code(s): M35.00 - Sjogren syndrome, unspecified Category: Medical Qualifiers: Sjogren organ or system involvement: keratoconjunctivitis Qualified Code(s): M35.01 - Sjogren syndrome with keratoconjunctivitis Plan: Monitor clinically Plan See above Orders: Orders Liver Panel 2 Weeks K76.0 - Fatty (change of) liver, not elsewhere classified, R74.01 - Elevation of levels of liver transaminase levels Coding Level of Care Code Est Pt Level 4 (36983) Complex visit Add On G2211 Diagnoses Rheumatoid arthritis M06.9 Other termite control technician (current) drug therapy Z79.899 Hepatic steatosis K76.0 Sjogren's syndrome with keratoconjunctivitis sicca M35.01 Sjogren organ or system involvement: keratoconjunctivitis
--- OUTSIDE RECORDS SUMMARY | 2025-02-14 15:17 | XMS_ITS | Encounter Summary ---
Author Organization [facility] Address [address] [place] [address] Phone Care Team Providers Care Coarse Wire Drawer Name Role Phone Laurie Landon MD Primary Care Provider [phone] Ruben Farooq MD Unavailable [phone] Vidal Sena MD Unavailable Hong Pacheco MD Unavailable [phone] Encounter Details Date Type Department Care Team (Late Contact Info) Description 07/28/2018 Ancillary Orders Division of Hematologic Oncology, [address], [address]th [place] [address] Chris Narvaez MD, PhD [address] [place] [address] 085[address] [email or web address] Marginal zone B-cell lymphoma Social History [...] 12:40 PM EST Blood Draw Laboratory Services, [address], 2nd [place] [address] Warren Tanner, FORK REPAIRER [address] [place] [address] 16[address] [email or web address] Chris Narvaez MD, PhD [address] [place] [address] [email or web address] 02/16/2025 1:30 PM EST Office Visit [facility], Division of Hematologic Oncology, [address], [address] [place] [address] Warren Tanner, [address] [address] [email or web address] Chris Narvaez MD, PhD [address] [place] [address] 80500 [email or web address] documented as of this encounter Results * US Abdomen Complete (07/28/2018 9:45 AM EDT) Anatomical Region Laterality Modality Abdomen Ultrasound 07/28/2018 Narrative 07/28/2018 9:46 AM EDT TESTS PERFORMED Abdominal Ultrasound complete (88839) Liver elastography INDICATIONS/REASONS FOR TESTS Abnormal liver [...] - 07/28/2018 TESTS PERFORMED Abdominal Ultrasound complete (24924) Liver elastography INDICATIONS/REASONS FOR TESTS Abnormal liver [...] lymphoma documented in this encounter Care Teams Coarse Wire Drawer Relationship Specialty Start Date End Date Laurie Landon MD [address] [place] [address] 23983 PCP - General 07/19/14 Ruben Farooq MD [address] [place] [address] [phone] @[employer] Referring Physician Hematology 06/10/15 Vidal Sena MD [address] [place] [address] 038[address] [email or web address] Rheumatology 01/26/19 Hong Pacheco MD [address] [place] [address] 08794 Internal Medicine 05/08/21 documented as of this encounter Additional Source Comments The information contained in this document represents components of the legal health record. It is not the complete legal health record.[facility]
--- OUTSIDE RECORDS SUMMARY | 2025-02-14 15:17 | XMS_ITS | Clinical Summary ---
Author Organization [facility] Address [address] [place] [address] Phone Care Team Providers Care Group Rooms Coordinator Name Role Phone Laurie Landon MD Primary Care Provider [phone] Ruben Farooq MD Unavailable Vidal Sena [...] malt Immunizations Immunization Administration Dates Next Due [id number] FORMULATION 02/22/2009 INFLUENZA, SPLIT VIRUS, TRIVALENT PF [...] 12:40 PM EST Blood Draw Laboratory Services, [facility] Cancer [address], 2nd [place] [address] Warren Tanner, MACHINE ASSEMBLER [address] [place] [address] 8[address] [email or web address] Chris Narvaez MD, PhD [address] [place] [address] Nabila@[email or web address] 02/16/2025 1:30 PM EST Office Visit [facility], Division of Hematologic Oncology, [address], [address]th [place] [address] Warren Tanner, MACHINE ASSEMBLER [address] [place] [address] 84047 [email or web address] Chris Narvaez MD, PhD [address] [place] [address] Nabila@[email or web address] Health Maintenance Due [...] SODIUM 141 136 - 145 mmol/L [facility] LIC# [id number] POTASSIUM 4.5 3.4 - 5.1 mmol/L [facility] LIC# [id number] CHLORIDE 106 98 - 107 mmol/L [facility] LIC# [id number] CO2 25 22 - 31 mmol/L [facility] LIC# [id number] BUN 22 6 - 23 mg/dL [facility] LIC# [id number] CREATININE 0.93 0.50 - 1.20 mg/dL [facility] LIC# [id number] GLUCOSE 109(H) 70 - 100 mg/dL [facility] LIC# [id number] ALBUMIN 4.0 3.5 - 5.2 g/dL [facility] LIC# [id number] TOTAL PROTEIN 7.0 6.4 - 8.3 g/dL [facility] LIC# [id number] CALCIUM 9.4 8.8 - 10.7 mg/dL [facility] LIC# [id number] ALKALINE PHOSPHATASE 110(H) 35 - 104 U/L [facility] LIC# [id number] TOTAL BILIRUBIN 0.3 0.2 - 1.2 mg/dL [facility] LIC# [id number] AST 35(H) <33 U/L [facility] LIC# [id number] ALT 44(H) <34 U/L [facility] LIC# [id number] GLOBULIN 3.0 2.3 - 4.2 g/dL [facility] LIC# [id number] EGFR 70 >59 mL/min/1.7 3m2 [facility] LIC# [id number] Comment:Estimated glomerular filtration rate calculated using the CKD-EPI refit equation. ANION GAP 10 7 - 17 mmol/L [facility] LIC# [id number] Blood 02/17/2024 8:33 AM EST 02/17/2024 8:38 AM EST us Chris Narvaez MD, PhD LAB BLOOD BKR ORDERABLES Final Result [facility] LIC# [id number] [address] [place] [address] * (ABNORMAL) Lipid panel (08/13/2022 10:16 AM EDT) CHOLESTEROL 131 <200 mg/dL [facility] LIC# [id number] TRIGLYCERIDES 83 35 - 150 mg/dL [facility] LIC# [id number] HDL 36(L) 40 - 80 mg/dL [facility] LIC# [id number] CALCULATED LDL 78 50 - 129 mg/dL [facility] LIC# [id number] VLDL 17 <31 mg/dL [facility] LIC# [id number] CARDIAC RISK RATIO 3.6 0.0 - 5.0 [facility] LIC# [id number] Blood 08/13/2022 10:1 6 AM EDT 08/13/2022 10:19 AM EDT Chris Narvaez MD, PhD LAB BLOOD BKR ORDERABLES Final Result Performing Organization Address City/[facility]/ZIP Co de Phone Number [facility] LIC# [id number] [address] [place] [address] * Hepatitis C Antibody with Reflex to HCV, RNA quantitative Real-Time PCR (07/28/2018 8:22 AM EDT) Pathologist [facility] HCV Ab Negative Negative [facility] Comment: (NOTE) Whsujg-vq-azibcb ratio is <1.00. 07/28/2018 8:22 AM EDT 07/28/2018 8:27 AM EDT us Chris Narvaez MD, PhD LAB BLOOD BKR ORDERABLES Final Result [facility] [place] [address] [place] [address] from Last 3 Months or Most Recently Relevant to Health Maintenance Insurance [facility] [employer] [place] [address] [place] [address] [place] [address] [place] [address] [employer] [address] [place] [address] [employer] [place] [address] [place] [address] [employer] [place] [address] [place] [address] [employer] Care Teams Group Rooms Coordinator Relationship Specialty Start Date End Date Laurie Landon MD [address] [place] [address] 65561 PCP - General 07/19/14 Ruben Farooq MD [address] [place] [address] @[employer] Referring Physician Hematology 06/10/15 Vidal Sena MD [address] [place] [address] [email or web address] 01/26/19 Hong Pacheco MD [address] [place] [address] 09140 Internal Medicine 05/08/21 Additional Source Comments The information contained in this document represents components of the legal health record. It is not the complete legal health record.[facility]
--- OUTSIDE RECORDS SUMMARY | 2025-02-14 15:17 | XMS_ITS | Encounter Summary ---
Author Organization [facility] Address [address] [place] [address] Phone Care Team Providers Care Deliverer Outside Name Role Phone Laurie Landon MD Primary Care Provider [phone] Ruben Farooq MD Unavailable [phone] Vidal Sena MD Unavailable Hong Pacheco MD Unavailable [phone] Reason for Visit * Reason Comments Medication Refill Encounter Details Date Type Department Care Team (Late Contact Info) Description 10/17/2020 Refill [facility], Division of Hematologic Oncology, [address], [address]th [place] [address] Chris Narvaez MD, PhD [address] [place] [phone] [email or web address] Medication Refill Social History Tobacco Use [...] 12:40 PM EST Blood Draw Laboratory Services, [address], 2nd [place] [address] Warren Tanner, CASHIER TUBE ROOM [address] [place] [phone] [email or web address] Chris Narvaez MD, PhD [address] [place] [address] [email or web address] 02/16/2025 1:30 PM EST Office Visit [facility], Division of Hematologic Oncology, [address], [address] [place] [address] Warren Tanner, CASHIER TUBE ROOM [address] [place] [address] 739[address] [email or web address] Chris Narvaez MD, PhD [address] [place] [address] [email or web address] documented as of this encounter Visit Diagnoses Not on filedocumented in this encounter Care Teams Deliverer Outside Relationship Specialty Start Date End Date Laurie Landon MD [address] [place] [address] 28063 PCP - General 07/19/14 Ruben Farooq MD [address] [place] [phone] @[employer] Referring Physician Hematology 06/10/15 Vidal Sena MD [address] [place] [address] Rheumatology 01/26/19 Hong Pacheco MD [address] [place] [address] 80064 Internal Medicine 05/08/21 documented as of this encounter Additional Source Comments The information contained in this document represents components of the legal health record. It is not the complete legal health record.[facility]
--- OUTSIDE RECORDS SUMMARY | 2025-02-14 15:17 | XMS_ITS | Encounter Summary ---
Author Organization [facility] Address [address] [place] [address] Phone Care Team Providers Care Netbackup Admin Name Role Phone Laurie Landon MD Primary Care Provider [phone] Ruben Farooq MD Unavailable [phone] Vidal Sena MD Unavailable Hong Pacheco MD Unavailable [phone] Reason for Visit * Reason Comments Medication Refill Encounter Details Date Type Department Care Team (Late Contact Info) Description 11/14/2021 Refill [facility], Division of Hematologic Oncology, [address], [address]th [place] [address] Chris Narvaez MD, PhD [address] [place] [address] [email or web address] Medication Refill Social History Tobacco Use [...] 12:40 PM EST Blood Draw Laboratory Services, [address], [address]nd [place] [address] Warren Tanner, VENDING MACHINE REFILLER [address] [place] [address] [email or web address] Chris Narvaez MD, PhD [address] [place] [address] Nabila@[email or web address] 02/16/2025 1:30 PM EST Office Visit [facility], Division of Hematologic Oncology, [address], [address] [place] [address] Warren Tanner, VENDING MACHINE REFILLER [address] [place] [address] 47[address] [email or web address] Chris Narvaez MD, PhD [address] [place] [address] [email or web address] documented as of this encounter Visit Diagnoses Not on filedocumented in this encounter Care Teams Net[employer] Admin Relationship Specialty Start Date End Date Laurie Landon MD [address] [place] [address] 876[address] PCP - General 07/19/14 Ruben Farooq MD [address] [place] [address] 10873 @[employer] Referring Physician Hematology 06/10/15 Vidal Sena MD [address] [place] [address] 120[address] [email or web address] 01/26/19 Hong Pacheco MD [address] [place] [address] 05210 Internal Medicine 05/08/21 documented as of this encounter Additional Source Comments The information contained in this document represents components of the legal health record. It is not the complete legal health record.[facility]
--- OUTSIDE RECORDS SUMMARY | 2025-02-14 15:17 | XMS_ITS | Clinical Summary ---
Author Organization [address] Address [address] [place] [phone] Phone Care Team Providers Care Visual Stylist Name Role Phone Laurie Landon MD Primary Care Provider [phone] Allergies Active Allergy Reactions Criticality Noted Date [...] penIndications: Severe obesity (BMI 35.0-35.9 with comorbidity) ([facility] V24, [facility] V28),Primary hypertension,St eatohepatitis, nonalcoholic Inject 0.25 mg [...] kidney disease) stage 3, GFR 30-59 ml/min ([facility] V24, [facility] V28) 05/21/2023 Migraine headache with aura 08/02/2020 Paresthesia of both lower extremities 05/31/2018 Overview (02/15/2024): Normal B12, no diabetes. H/o lumbar disc disease. Nerve conduction studies 05/2018 normal HSV-2 (herpes simplex virus 2) infection 019 Overview (02/15/2024): Clinical diagnosis. Vaginal cultures were negative. 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 [...] on pap 03/28 Hypertension 12/28/2011 Sjogren's syndrome ([facility] V24) 01/30/2011 Overview (02/15/2024): Pos NATALY, SS-A. Neg SS-B MALT lymphoma, parotid. Received Rituxamab at [facility]. Hydroxychloroquine stopped after one year [...] Severe obesity (BMI 35.0-35. 9 with comorbidity) ([facility] V24, [facility] V28) Encounters Date Type Department Care Team Description 02/06/2025 7:35 AM EST Lab Draw Station - [facility] 175 [facility] [address] [place] [phone] Obesity (BMI 30-39.9) 02/05/2025 1:45 PM EST Office Visit Bariatric Surgery - [address] [place] [phone] Duncan Vásquez MD Class 2 obesity due to excess calories with body mass index (BMI) of 37.0 to 37.9 in adult, unspecified whether serious comorbidity present (Primary Dx); Steatohepatitis, nonalcoholic; Hyperglycemia; Prediabetes 01/31/2025 1:00 PM EST Office Visit Bariatric Surgery [address] [place] [phone] Mindi Dobson MD Obesity (BMI 30-39.9) (Primary Dx); Primary hypertension; Gastroesophageal reflux disease with esophagitis, unspecified whether hemorrhage; Sjogren's syndrome, with unspecified organ involvement (CMS/[facility] V24) 01/17/2025 12:45 PM EST Office Visit Adult Medicine [address] [phone] Laurie Landon MD Primary hypertension (Primary Dx); Hypothyroidism, unspecified type; Vitamin D deficiency; Stage 3a chronic kidney disease (CMS/HCC V24, CMS/HCC V28); Screen for colon cancer; Moderate persistent asthma without complication 01/17/2025 Telephone Adult Medicine [address] [phone] Laurie Landon MD 01/09/2025 Telephone Adult Medicine [address] [phone] Laurie Landon MD from Last 3 Months Immunizations Immunization Administration Dates Next Due COVID-19 (Pfizer/SpinNoteirConfortVisuel) 12yo and older 12/07/2022 H1N1 All Forms 02/22/2009 H1N1 Inj Preservative Free 02/22/2009 Hepatitis B (Hqqqjfl-S-Ucpcv , Recombivax HB-Adult) 19yo and older 04/07/2017,09/30/2016,09/03/2016 [...] varicose veins Leiomyoma of uterus, unspecified 06/30/2006 [place]'s syndrome ([facility] V24) Rotator cuff tear 08/29/2007 right Sicca syndrome ([facility] V24) 07/26/2006 + A NA, + SSA, [...] 05/07/2025 12:30 PM EST Consult Bariatric Surgery [address] [phone] Heidy Yun, RD [address] [phone] 07/18/2025 12:45 PM EDT Office Visit Adult Medicine [address] [phone] Laurie Landon MD [address] [place] [address] 08/21/2025 1:15 PM EDT Office Visit Bariatric Surgery [address] [phone] Duncan Vásquez MD [address] [place] [phone] Health Maintenance Due Date Last Done [...] - 4.00 mcIU/mL 02/06/2025 10:31 AM EST [facility] Blood Venous blood specimen / Unknown Venipuncture / Unknown 02/06/2025 7:37 AM EST 02/06/2025 7:37 AM EST us Mindi Dobson MD LAB BLOOD ORDERABLES Fi nal Result [facility] [address] [place] [address], [place] [phone] * (ABNORMAL) Lipid panel with reflex to [...] Ej 20 mg/dL 02/06/2025 10:39 AM EST [facility] Non HDL Chol. (LDL+VLDL) 113 <145 mg/dL 02/06/2025 10:39 AM [facility] Chol/HDL Ratio 3.9 0.0 - 4.4 02/06/2025 10:39 AM [facility] Blood Venous blood specimen / Unknown Venipuncture / Unknown 02/06/2025 7:37 AM EST 02/06/2025 7:37 AM EST us Mindi Dobson MD LAB BLOOD ORDERABLES Fi nal Result [facility] ([facility]) [facility] [address] [place] [address], * Nicotine and cotinine (02/06/2025 7:37 AM [...] <2 ng/mL Reference Ranges from: Clin. Chem.; 48:6236-1815 (2002) Direct any interpretive questions to the toxicology laboratory. This is for medical use only, it is not intended for forensic use. If applicable, any drug confirmation testing reported here was developed and the performance characteristics determined by [facility]. This confirmation testing has not been cleared or approved by the FDA. The laboratory is regulated under CLIA as qualified to perform high-complexity testing. This test is used for patient testing purposes. It should not be regarded as investigational or for research. Test performed at [facility], [address], [place] [address] Laure Javier MD, PhD - [employer] Blood Venous blood specimen / Unknown Venipuncture / Unknown 02/06/2025 7:37 AM EST 02/06/2025 7:37 AM EST us Mindi Dobson MD LAB BLOOD ORDERABLES Fi nal Result [facility] [address] [place] [address] * (ABNORMAL) CBC auto differential (02/06/2025 7:37 AM EST) [facility] Signature WBC 5.8 4.8 - 10.8 [...] ORDERABLES Fi nal Result Performing Organization Address [facility]/ZIP Co de Phone Number [facility] [address] [place] [address], [place] [phone] * (ABNORMAL) Iron and TIBC (02/06/2025 7:37 AM EST) Iron 155(H) 40 - 150 mcg/dL 02/06/2025 10:39 AM EST [facility] TIBC 312 250 - 450 mcg/dL 02/06/2025 10:39 AM EST [facility] Iron Saturation 50 15 - 50 % 10:39 AM EST [facility] Blood Venous blood specimen / Unknown Venipuncture / Unknown 02/06/2025 7:37 AM EST 02/06/2025 7:37 AM EST Mindi Dobson MD LAB BLOOD ORDERABLES Fi nal Result Performing Organization Address [facility] Co de Phone Number [facility] [address] [place] [address], [place] [phone] * (ABNORMAL) Insulin, total (02/06/2025 7:37 AM EST) Insulin 46.4(H) 3.0 - 25.0 mcIU/mL 02/06/2025 10:31 AM EST [facility] Blood Venous blood specimen / Unknown Venipuncture / Unknown 02/06/2025 7:37 AM EST 02/06/2025 7:37 AM EST Narrative [facility] - 02/06/2025 10:31 AM EST Insulin reference range based on fasting status. Insulin values vary in non-fasting individuals. us Mindi Dobson MD LAB BLOOD ORDERABLES Fi nal Result Performing Organization Address [facility]/ZIP Co de Phone Number [facility] [address] [place] [address], [place] [phone] * Helicobacter pylori breath test (02/06/2025 7:37 AM EST) H Pylori Breath Test Negative Negative LAB CHEMISTRY METHOD 02/06/2025 10:53 AM EST [facility] Breath Oral cavity structure / Unknown Non-blood Collection / Unknown 02/06/2025 7:37 AM EST 02/06/2025 7:38 AM EST us Mindi Dobson MD LAB BODY FLUIDS AND STO OLS ORDERABLES Final Result Performing Organization Address [facility] Co de Phone Number [facility] [address] [place] [address], [place] [phone] * Uric acid (02/06/2025 7:37 AM EST) [facility] Uric Acid 7.1 3.1 - 7.8 mg/dL 02/06/2025 10:39 AM EST [facility] Blood Venous blood specimen / Unknown Venipuncture / Unknown 02/06/2025 7:37 AM EST 02/06/2025 7:37 AM EST us Mindi Dobson MD LAB BLOOD ORDERABLES Fi nal Result Performing Organization Address [facility]/ZIP Co de Phone Number [facility] [address] [place] [address], [place] [phone] * Vitamin B1 (02/06/2025 7:37 AM EST) [facility] Vitamin B1 Whole Blood 81 38 - 122 ug/L 02/13/2025 7:15 AM EST [facility] Comment: This test was developed and the performance characteristics determined by [facility]. It has not been cleared or approved by the FDA. The laboratory is regulated under CLIA as qualified to perform high-complexity testing. This test is used for patient testing purposes. It should not be regarded as investigational or for research. Test performed at [facility], [address] , [place] [address] Laure Javier MD, PhD - [employer] Blood Venous blood specimen / Unknown Venipuncture / Unknown 02/06/2025 7:37 AM EST 02/06/2025 7:37 AM EST us Mindi Dobson MD LAB BLOOD ORDERABLES Fi nal Result [facility] [address] [place] [address] * Parathyroid hormone intact (02/06/2025 7:37 AM EST) PTH 54.1 18.5 - 88.0 pcg/mL 02/06/2025 10:28 AM EST [facility] Blood Venous blood specimen / Unknown Venipuncture / Unknown 02/06/2025 7:37 AM EST 02/06/2025 7:37 AM EST us Mindi Dobson MD LAB BLOOD ORDERABLES Fi nal Result [facility] [address] [place] [address], * Hemoglobin A1c (02/06/2025 7:37 AM EST) Hemoglobin A1C 5.5 <6.5 % LAB CHEMISTRY METHOD 02/06/2025 11:37 AM EST [facility] Mean Bld Glu Estim. 111 mg/dL LAB CHEMISTRY METHOD 02/06/2025 11:37 AM EST [facility] Blood Venous blood specimen / Unknown Venipuncture / Unknown 02/06/2025 7:37 AM EST 02/06/2025 7:37 AM EST us Mindi Dobson MD LAB BLOOD ORDERABLES Fi nal Result Performing Organization Address City/[facility]/ZIP Co de Phone Number [facility] [address] [place] [address], [place] [phone] * Folate (02/06/2025 7:37 AM EST) Folate 19.7 >=5.4 ng/ml 02/06/2025 10:32 AM EST [facility] Blood Venous blood specimen / Unknown Venipuncture / Unknown 02/06/2025 7:37 AM EST 02/06/2025 7:37 AM EST Narrative [facility] - 02/06/2025 10:32 AM EST Over the counter supplements containing high doses of biotin may interfere with this assay. If interference is suspected, patients shoud be retested after refraining from biotin supplements for 72 hours. us Mindi Dobson MD LAB BLOOD ORDERABLES Fi nal Result Performing Organization Address [facility] Co de Phone Number [facility] [address] [place] [address], [place] [phone] * (ABNORMAL) Ferritin (02/06/2025 7:37 AM EST) Pathologist [facility] Ferritin 323(H) 7 - 271 ng/mL 02/06/2025 10:33 AM EST [facility] Blood Venous blood specimen / Unknown Venipuncture / Unknown 02/06/2025 7:37 AM EST 02/06/2025 7:37 AM EST us Mindi Dobson MD LAB BLOOD ORDERABLES Fi nal Result Performing Organization Address City/[facility]/ZIP Co de Phone Number [facility] [address] [place] [address], [place] [phone] * Vitamin B12 (02/06/2025 7:37 AM EST) Pathologist [facility] Vitamin B-12 610 211 - 911 pcg/mL 02/06/2025 10:33 AM EST [facility] Blood Venous blood specimen / Unknown Venipuncture / Unknown 02/06/2025 7:37 AM EST 02/06/2025 7:37 AM EST us Mindi Dobson MD LAB BLOOD ORDERABLES Fi nal Result Performing Organization Address City/[facility]/ZIP Co de Phone Number [facility] [address] [place] [address], [place] [phone] * Cortisol (02/06/2025 7:37 AM EST) [facility] Cortisol 10.5 mcg/dL 02/06/2025 10:28 AM EST [facility] Blood Venous blood specimen / Unknown Venipuncture / Unknown 02/06/2025 7:37 AM EST 02/06/2025 7:37 AM EST Narrative [facility] - 02/06/2025 10:28 AM EST CORTISOL REFERENCE RANGE 8 AM SPEC: 5.0-23.0 mcg/dL 4 PM SPEC: 3.0-16.0 mcg/dL 8 PM SPEC: <5.0 mcg/dL us Mindi Dobson MD LAB BLOOD ORDERABLES Fi nal Result [facility] [address] [place] [address], [place] [phone] * (ABNORMAL) Comprehensive metabolic panel (02/06/2025 7:37 AM EST) [facility] Sodium 142 133 - 145 mmol/L 02/06/2025 10:39 AM EST [facility] Potassium 4.4 3.5 - [...] - 5.0 g/dL 02/06/2025 10:39 AM EST [facility] Total Bilirubin 0.7 0.0 - 1.4 mg/dL 02/06/2025 10:39 AM EST [facility] Blood Venous blood specimen / Unknown Venipuncture / Unknown 02/06/2025 7:37 AM EST 02/06/2025 7:37 AM EST Mindi Dobson MD LAB BLOOD ORDERABLES Fi nal Result [facility] [address] [place] [address], [place] [phone] * HPV with reflex genotype (05/01/2024 7:49 AM EST) HPV Negative Negative LAB MICROBIOLOGY METHOD 05/01/2024 2:04 PM EST [facility] Brushing/Spatula Cervix uteri structure / Unknown 05/01/2024 7:49 AM EST 05/01/2024 7:49 AM EST us Laverne BELLA LAB MOLECULAR DIAGNOSTICS O RDERABLES Final Result Performing Organization Address City/[facility]/ZIP Co de Phone Number [facility] [address] [place] [address], [place] [phone] * Hepatitis C antibody (04/25/2024 9:29 AM EST) Hepatitis C Antibody Negative Negative LAB CHEMISTRY METHOD 04/25/2024 12:43 PM EST [facility] Blood Venous blood specimen / Unknown Venipuncture / Unknown 04/25/2024 9:29 AM EST 04/25/2024 9:29 AM EST us Laverne Lilly CNM LAB BLOOD ORDERABLES Final Result [facility] [address] [place] [address], [place] [phone] * HIV 1,2 antibody, p24 antigen with reflex to differentiation (04/25/2024 9:29 AM EST) HIV Combo AB/AG Negative Negative LAB CHEMISTRY METHOD 04/25/2024 12:43 PM EST [facility] Blood Venous blood specimen / Unknown Venipuncture / Unknown 04/25/2024 9:29 AM EST 04/25/2024 9:29 AM EST Narrative [facility] - 04/25/2024 12:43 PM EST This assay is a 4th generation assay allowing for earlier detection of HIV infection by detecting the presence of the HIV-1 p24 antigen as well as the traditional antibodies to HIV type 1 (including group O) and type 2. Use of a 4th generation assay is the current CDC recommendation for HIV screening. Laverne Lilly [facility] BLOOD ORDERABLES Final Result [facility] [address] [place] [address], * SCREENING MAMMOGRAPHY BI 2-VIEW BREAST INC [...] Most Recently Relevant to Health Maintenance Insurance [employer] Care Teams Visual Stylist Relationship Specialty Start Date End Date Laurie Landon MD [address] [place] [phone] PCP - General 07/28/02
--- OUTSIDE RECORDS SUMMARY | 2025-02-14 15:17 | XMS_ITS | Encounter Summary ---
Author Organization [facility] Address [address] [place] [phone] Phone Care Team Providers Care Yard Person Name Role Phone Laurie Landon MD Primary Care Provider [phone] Ruben Farooq MD Unavailable [phone] Vidal Sena MD Unavailable Hong Pacheco MD Unavailable [phone] Reason for Visit * Reason Comments Medication Refill Encounter Details Date Type Department Care Team (Late Contact Info) Description 02/29/2020 [facility], Division of Hematologic Oncology, [address] [place] [address] Chris Narvaez MD, PhD [address] [place] [phone] [email or web address] Medication Refill Social History Tobacco Use [...] 12:40 PM EST Blood Draw Laboratory Services, [address], [address] [place] [address] Warren Tanner, COLORIST DYER [address] [place] [phone] [email or web address] Chris Narvaez MD, PhD [address] [place] [phone] [email or web address] 02/16/2025 1:30 PM EST Office Visit [facility], Division of Hematologic Oncology, [address], [address] [place] [address] Warren Tanner, CATERINA [address] [place] [phone] [email or web address] Chris Narvaez MD, PhD [address] [place] [phone] [email or web address] as of this encounter Visit Diagnoses Not on filedocumented in this encounter Care Teams Yard Person Relationship Specialty Start Date End Date Laurie Landon MD [address] [place] [phone] PCP - General 07/19/14 Ruben Farooq MD [address] [place] [phone] [email or web address] Referring Physician Hematology 06/10/15 Vidal Sena MD [address] [place] [phone] [email or web address] 01/26/19 Hong Pacheco MD [address] [place] [phone] Internal Medicine 05/08/21 documented as of this encounter Additional Source Comments The information contained in this document represents components of the legal health record. It is not the complete legal health record.[facility]
== END 2025-02-14 13:28 | disposition home or self-care (01) ==
LOC: HO.RHES 12:53
PROVIDERS: PCP Internal Medicine; Visit Provider Internal Medicine Rheumatology
DX: M06.9 Rheumatoid arthritis, unspecified (principal); Z79.899 Other long term (current) drug therapy; K76.0 Fatty (change of) liver, not elsewhere classified; M35.01 Sjogren syndrome with keratoconjunctivitis
CPT/HCPCS: 99214

== ENCOUNTER → 2025-02-14 12:52 | Outpatient (BNVA) | payer OTHER, SELFPAY | PROVIDERS: PCP Internal Medicine; Visit Provider Internal Medicine Rheumatology | DX: M06.9 Rheumatoid arthritis, unspecified (principal); K76.0 Fatty (change of) liver, not elsewhere classified; M35.01 Sjogren syndrome with keratoconjunctivitis; R74.01 Elevation of levels of liver transaminase levels; Z79.899 Other long term (current) drug therapy | CPT/HCPCS: 99212 ==